=== PATIENT | male | born 1935 | race Caucasian/White ===

== ENCOUNTER 2017-04-06 15:18 | Inpatient (IN) | payer MEDICARE ==
[2017-04-06 17:50] VITALS: BMI 34.3
[2017-04-06] MEDS ORDERED: Clopidogrel Bisulfate 75 MG TAB PO SCH (18:30)
[2017-04-06] MEDS ORDERED: Ondansetron HCl/PF 4 MG/2 ML Vial IVP PRN (18:34)
[2017-04-06] MEDS: Tamsulosin HCl 0.4 MG CAP PO SCH (20:15)
[2017-04-06] MEDS: Oxybutynin 5 MG TAB PO SCH (20:15)
[2017-04-06] MEDS ORDERED: Rosuvastatin 10 MG TAB PO SCH (21:00)
[2017-04-07] MEDS: HYDROcodone/Acetaminophen 10/325 mg Tablet PO PRN (00:05)
--- NOTE | 2017-04-07 00:27 | HP ---
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 He has had a functional spacer placed and has been started on antibiotics. Sensitivities of the Enterococcus are still pending, but at this time, he is on daptomycin 1000 mg IV daily until further sensitivities return. He has been placed nonweightbearing and transferred to [facility] for continued antibiotics therapy. PAST MEDICAL HISTORY: As mentioned above is remarkable for recurrent DVT and atrial fibrillation, bu t also severe life threatening GI bleed from a gastric ulcer and therefore is not on any anticoagulat ion other than aspirin and Plavix. He also has the above-mentioned history of Enterococcus urinary t ract infection that was vancomycin resistant and most likely is the same organism that is causing his knee infection. PAST SURGICAL HISTORY: Positive for an appendectomy, tonsillectomy, the above-mentioned left knee re placement and a duodenostomy after his bleeding ulcer. Also remarkable for benign prostatic hypertro phy, lower tract obstructive symptoms. ALLERGIES: He has no known allergies. SOCIAL HISTORY: He is retired. Lives in [place] with his for many years. He is a nonsmoker. MEDICATIONS: At present include hydrocodone 10/325 as needed for pain, vitamin C 2000 mg daily, aspi rin 81 daily, Plavix 75 daily, B12 of 5000 mcg daily, daptomycin 1000 mg daily, finasteride 5 mg do y, levothyroxine 75 mcg daily, rosuvastatin 20 mg nightly, Citracal Plus D 1 tablet daily, glucosamin e/chondroitin daily, sitagliptin 50 mg daily, Zofran 4 mg as needed for nausea, Ditropan 10 mg nightl y, Protonix 40 daily, tamsulosin 0.4 mg nightly. REVIEW OF SYSTEMS: HEENT: Denies any headaches, dizziness, change in vision or hearing, hoarseness or dysphagia. Pulmonary: Denies cough, sputum production, pneumonia, asthma, tuberculosis. Cardiov ascular: Denies any chest pain, orthopnea, paroxysmal nocturnal dyspnea, or edema, but is limited in his activities secondary to his arthritis. Gastrointestinal: He has the above-mentioned history of bleeding ulcer and has no abdominal pain, no constipation, no diarrhea. Genitourinary: Denies dysu shalom, but does have nocturia, and decreased stream. Musculoskeletal: He has minimal pain in his left knee at rest, but in the knee immobilizer. Neurologic: Denies localized numbness, weakness in arms or extremities. PHYSICAL EXAMINATION: GENERAL: Patient is an elderly white male in no acute distress, oriented x3 and cooperative. VITAL SIGNS: Show him to have blood pressure of 177/75, temperature 98, pulse 62, respirations 18, O 2 sat 92%. HEENT: Pupils equal, round, and reactive to light and accommodation. Sclerae are anicteric, Conjunc tivae pale. Oral mucous membranes well hydrated. NECK: Supple. There are no nodes or masses. JVP is not elevated. LUNGS: Clear. CARDIAC: Shows irregularly irregular rhythm. No gallops or murmurs. ABDOMEN: Soft and nontender with no masses or organomegaly. SKIN/EXTREMITIES: Left knee immobilizer. Minimal tenderness. No edema, clubbing, cyanosis. No dec ubitus. NEUROLOGICAL: Intact. LABORATORY DATA: Most recently showed white count 10,900, hematocrit 36, hemoglobin 11, 19% bands. Sodium 140, potassium 4.3, chloride 111, bicarbonate 25, BUN 21, creatinine 1.25, GFR 55. ASSESSMENT: The patient is an 82-year-old white male with multiple medical problems including atrial fibrillation, deep venous thrombosis, with pulmonary embolus, obstructive sleep apnea, CPAP, type 2 diabetes, and recurrent urinary tract infection secondary to Enterococcus who presents with Enterococ cus infection of the left prosthetic. He knee is now status post removal of prosthesis and placement of spacers and initiation of treatment with Cubicin (daptomycin) 1000 mg IV daily for the next 6 wee ks. He will be monitored closely by myself and by Dr. Perales with serial renal function test. He tiesha l be given nonweightbearing orders or PT until confirmed next week, 50% nonweightbearing, be continue d on his CPAP with supplemental oxygen as needed. He will be continued on his home medications as si tagliptin for his diabetes with Accu-Cheks refused by the patient, we will only check daily labs to d etermine if need for Accu-Cheks as sitagliptin will not cause hypoglycemia. We will maintain often s ignificant anticoagulation as patient has had significant GI bleed in the past.
[2017-04-07] MEDS: Levothyroxine Sodium 75 MCG TAB PO SCH (05:42)
[2017-04-07 06:07] LABS: #Basophils 0.2 thou/uL (0.0-0.2); #Eosinphils 1.1 thou/uL (0.0-0.7); #Lymphocytes 2.3 thou/uL (1.20-3.40); #Monocytes 1.3 thou/uL (0.11-0.59); #Neutrophils 7.6 thou/uL (1.40-6.50); %Basophils 1.3 % (0.0-1.0); %Eosinophils 8.4 % (0.0-10.0); %Lymphocytes 18.4 % (21.0-51.0); %Monocytes 10.7 % (0.0-10.0); %Neutrophils 61.1 % (42.0-75.0); Hemoglobin 11.9 g/dL (14.0-18.0); Mean Corpuscular HGB CONC 32.1 g/dL (32.0-36.0); Mean Corpuscular Hemoglobin 27.7 pg (27.0-31.0); Mean Corpuscular Volume 86.3 fl (80.0-94.0); Platelet Count 165 thou/uL (130-400); RBC Distribution Width 13.3 % (11.5-14.5); Red Blood Cell (RBC) Count 4.29 mill/uL (4.70-6.10); White Blood Cell (WBC) Count 12.4 thou/uL (4.8-10.8)
[2017-04-07 06:23] LABS: Anion Gap 12 mmol/L (10-20); BUN (Urea Nitrogen) 15 mg/dL (8.4-25.7); Calc. Creatinine Clearance 111 mL/min (70-130); Calcium 9.1 mg/dL (7.8-10.44); Carbon Dioxide 27 mmol/L (23-31); Chloride 105 mmol/L (98-107); Estimated GFR-MDRD 79; Glucose 174 mg/dL (83-110); Potassium 3.4 mmol/L (3.5-5.1); Sodium 141 mmol/L (136-145)
[2017-04-07] MEDS: Alogliptin 6.25 MG TAB PO SCH (09:01)
[2017-04-07] MEDS: Ascorbic Acid 500 mg Chewable Tablet PO SCH (09:01)
[2017-04-07] MEDS: Finasteride 5 MG TAB PO SCH (09:02)
[2017-04-07] MEDS: Calcium Carbonate + Vit D 1 TAB PO SCH (09:02)
[2017-04-07] MEDS: Cyanocobalamin (Vitamin B-12) 1,000 MCG TAB PO SCH (09:02)
[2017-04-07] MEDS: Aspirin 81 mg Enteric Coated Tablet PO SCH (09:02)
[2017-04-07] MEDS: Multivitamin W/ Minerals 1 TAB PO SCH (09:03)
[2017-04-07] MEDS: Glucosam/Chondr-Msm1/D3/C/Mang [Glucosamine Chondroitin Comple PO SCH (09:03)
[2017-04-07] MEDS ORDERED: Dextrose 5% in Water 1,000 ML IV PRN (16:22)
[2017-04-07] MEDS ORDERED: Dextrose 50% Abboject 50 ML SYRINGE SLOW IVP PRN (16:22)
--- NOTE | 2017-04-07 17:14 | RAD ---
SEMIUPRIGHT PORTABLE CHEST ONE VIEW: 04/07/17 HISTORY: 82-year-old male with pulmonary fibrosis. COMPARISON: 07/05/16. FINDINGS: Cardiomegaly with some mild vascular congestion and minimal interstitial changes and left pleural eff usion, evidence for some acute vascular congestion and minimal congestive heart failure. Right PICC l ine in place. Left ICD. No overt confluent process. IMPRESSION: Minimal cardiomegaly with developing vascular congestion and minimal interstitial edema and left pleu ral effusion. These interstitial and congestive changes have progressed from a 03/27/17 study as well . POS: [facility]
--- NOTE | 2017-04-07 17:14 | PRG ---
DATE OF SERVICE: 04/06/2017 SUBJECTIVE: The patient lying in bed, visiting with family, in no distress, but states that he had d ifficulty breathing last night and became somewhat confused according to the family, although he does not remember this. He also states that he did do therapy today and after discussion with physical t herapy, has been placed on 50% weightbearing, but wishes to maintain on his knee immobilizer at all t imes. He has been using his BiPAP with supplemental oxygen and wishes to continue this. OBJECTIVE: VITAL SIGNS: Blood pressure 164/74, pulse 71, O2 sats 94% on 1.5 liters. LUNGS: Show a few diffuse posterior wheezes. CARDIAC: Shows an irregularly irregular rhythm. SKIN AND EXTREMITIES: Show no edema. Left knee is in a knee immobilizer. LABORATORY DATA: White count 12,400, hematocrit 37, hemoglobin 11. Sodium 141, potassium 3.4, chlor aj 105, bicarb 27, BUN 15, creatinine 0.92. Accu-Cheks 174-223. ASSESSMENT: 1. An 82-year-old white male, atrial fibrillation, deep vein thrombosis, pulmonary embolus, and obst ructive sleep apnea on 1.5 liters and CPAP with persistent symptoms of dyspnea at night and new onset of some wheezing and bronchospasm. 2. Enterococcal infection of the left knee, on IV daptomycin for 6 weeks. Tolerated well and doing well with therapy today, in fact, 50% weightbearing. 3. Recurrent delirium worsened last night and according to family has occurred in the past and we wi ll start olanzapine 5 mg at bedtime p.r.n. and monitor. 4. Type 2 diabetes with slightly under control on sitagliptin and we will start on Accu-Cheks and mi ld sliding scale.
[2017-04-07] MEDS: HumaLOG 300 UNITS/3 ML VIAL SC PRN (17:35)
[2017-04-07] MEDS ORDERED: OLANZapine 5 MG TAB PO PRN (21:00)
[2017-04-07] MEDS: Oxybutynin 5 MG TAB PO SCH (21:06)
[2017-04-07] MEDS: Tamsulosin HCl 0.4 MG CAP PO SCH (21:06)
[2017-04-08 05:33] LABS: #Basophils 0.2 thou/uL (0.0-0.2); #Lymphocytes 2.4 thou/uL (1.20-3.40); #Monocytes 1.4 thou/uL (0.11-0.59); #Neutrophils 7.6 thou/uL (1.40-6.50); %Basophils 1.5 % (0.0-1.0); %Eosinophils 7.6 % (0.0-10.0); %Lymphocytes 19.1 % (21.0-51.0); Hemoglobin 11.6 g/dL (14.0-18.0); Mean Corpuscular HGB CONC 34.5 g/dL (32.0-36.0); Mean Corpuscular Hemoglobin 29.4 pg (27.0-31.0); Mean Corpuscular Volume 85.1 fl (80.0-94.0); Mean Platelet Volume 10.7 fL (7.4-10.4); Platelet Count 156 thou/uL (130-400); RBC Distribution Width 12.8 % (11.5-14.5); Red Blood Cell (RBC) Count 3.94 mill/uL (4.70-6.10); White Blood Cell (WBC) Count 12.5 thou/uL (4.8-10.8)
[2017-04-08] MEDS: Levothyroxine Sodium 75 MCG TAB PO SCH (05:40)
[2017-04-08 05:45] LABS: Anion Gap 13 mmol/L (10-20); BUN (Urea Nitrogen) 16 mg/dL (8.4-25.7); Calc. Creatinine Clearance 103 mL/min (70-130); Calcium 9.1 mg/dL (7.8-10.44); Carbon Dioxide 27 mmol/L (23-31); Chloride 105 mmol/L (98-107); Estimated GFR-MDRD 73; Glucose 183 mg/dL (83-110); Potassium 3.6 mmol/L (3.5-5.1); Sodium 141 mmol/L (136-145)
[2017-04-08] MEDS: HumaLOG 300 UNITS/3 ML VIAL SC PRN ×2 (05:50→12:29)
[2017-04-08] MEDS: Ascorbic Acid 500 mg Chewable Tablet PO SCH (08:34)
[2017-04-08] MEDS: Alogliptin 6.25 MG TAB PO SCH (08:34)
[2017-04-08] MEDS: Calcium Carbonate + Vit D 1 TAB PO SCH (08:35)
[2017-04-08] MEDS: Glucosam/Chondr-Msm1/D3/C/Mang [Glucosamine Chondroitin Comple PO SCH (08:35)
[2017-04-08] MEDS: Cyanocobalamin (Vitamin B-12) 1,000 MCG TAB PO SCH (08:35)
[2017-04-08] MEDS: Multivitamin W/ Minerals 1 TAB PO SCH (08:35)
[2017-04-08] MEDS: Finasteride 5 MG TAB PO SCH (08:35)
[2017-04-08] MEDS: Aspirin 81 mg Enteric Coated Tablet PO SCH (08:35)
[2017-04-08] MEDS ORDERED: Milk Of Magnesia 30 ML UDCUP PO PRN (17:55)
[2017-04-08] MEDS: Oxybutynin 5 MG TAB PO SCH (20:23)
[2017-04-08] MEDS: Tamsulosin HCl 0.4 MG CAP PO SCH (20:24)
[2017-04-09] MEDS: Levothyroxine Sodium 75 MCG TAB PO SCH (05:18)
[2017-04-09 05:23] LABS: #Basophils 0.2 thou/uL (0.0-0.2); #Eosinphils 0.9 thou/uL (0.0-0.7); #Lymphocytes 2.4 thou/uL (1.20-3.40); #Monocytes 1.5 thou/uL (0.11-0.59); #Neutrophils 9.6 thou/uL (1.40-6.50); %Basophils 1.2 % (0.0-1.0); %Lymphocytes 16.3 % (21.0-51.0); %Monocytes 10.1 % (0.0-10.0); %Neutrophils 66.4 % (42.0-75.0); Hemoglobin 11.9 g/dL (14.0-18.0); Mean Corpuscular HGB CONC 33.4 g/dL (32.0-36.0); Mean Corpuscular Hemoglobin 28.7 pg (27.0-31.0); Mean Corpuscular Volume 86.1 fl (80.0-94.0); Mean Platelet Volume 11.1 fL (7.4-10.4); Platelet Count 166 thou/uL (130-400); RBC Distribution Width 13.2 % (11.5-14.5); Red Blood Cell (RBC) Count 4.15 mill/uL (4.70-6.10); White Blood Cell (WBC) Count 14.4 thou/uL (4.8-10.8)
[2017-04-09 05:43] LABS: ALT (SGPT) 29 U/L (8-55); AST (SGOT) 34 U/L (5-34); Albumin 2.9 g/dL (3.4-4.8); Alkaline Phosphatase 120 U/L (40-150); Anion Gap 13 mmol/L (10-20); BUN (Urea Nitrogen) 18 mg/dL (8.4-25.7); Bilirubin, Total 0.8 mg/dL (0.2-1.2); CK (CPK) 60 U/L (30-200); Calc. Creatinine Clearance 97 mL/min (70-130); Calcium 9.2 mg/dL (7.8-10.44); Carbon Dioxide 27 mmol/L (23-31); Chloride 105 mmol/L (98-107); Estimated GFR-MDRD 68; Globulin 3.4 g/dL (2.4-3.5); Glucose 188 mg/dL (83-110); Potassium 3.8 mmol/L (3.5-5.1); Protein, Total 6.3 g/dL (5.8-8.1); Sodium 141 mmol/L (136-145)
[2017-04-09] MEDS: HumaLOG 300 UNITS/3 ML VIAL SC PRN ×4 (05:57→20:13)
[2017-04-09] MEDS: Ascorbic Acid 500 mg Chewable Tablet PO SCH (08:28)
[2017-04-09] MEDS: Aspirin 81 mg Enteric Coated Tablet PO SCH (08:28)
[2017-04-09] MEDS: Calcium Carbonate + Vit D 1 TAB PO SCH (08:28)
[2017-04-09] MEDS: Alogliptin 6.25 MG TAB PO SCH (08:28)
[2017-04-09] MEDS: Glucosam/Chondr-Msm1/D3/C/Mang [Glucosamine Chondroitin Comple PO SCH (08:29)
[2017-04-09] MEDS: Multivitamin W/ Minerals 1 TAB PO SCH (08:29)
[2017-04-09] MEDS: Finasteride 5 MG TAB PO SCH (08:29)
[2017-04-09] MEDS ORDERED: Melatonin 3 MG TAB PO PRN (10:17)
[2017-04-09] MEDS: Cyanocobalamin (Vitamin B-12) 1,000 MCG TAB PO SCH (12:08)
[2017-04-09 12:20] LABS: Bilirubin Negative (Negative); Blood, Urine Negative (Negative); Clarity Clear (Clear); Glucose, Urine (Dipstick) Negative (Negative); Leukocyte Negative (Negative); Nitrite Negative (Negative); Protein, Urine (Dipstick) Negative (Neg-Trace); Specific Gravity, Urine 1.015 (1.005-1.030); Urobilinogen 0.2 mg/dL (0.2-1.0)
[2017-04-09 15:10] LABS: CRP (Inflammatory) 7.47 mg/dL (= or < 0.5)
[2017-04-09] MEDS: Oxybutynin 5 MG TAB PO SCH (20:13)
[2017-04-09] MEDS: Tamsulosin HCl 0.4 MG CAP PO SCH (20:13)
[2017-04-09 21:56] LABS: RBC/HPF 0-3 HPF (0-3); Squamous Epithelial 0-3 HPF (0-3); WBC/HPF 0-3 HPF (0-3)
[2017-04-10] MEDS ORDERED: Furosemide 40 MG/4 ML VIAL SLOW IVP SCH (03:00)
--- NOTE | 2017-04-10 04:07 | PRG ---
DATE OF SERVICE: 04/09/2017 SUBJECTIVE: The patient feels well during the day, but is confused at night. No respiratory distres s. No cough, eating well. No agitation. OBJECTIVE: LABORATORY: Shows white count of 14,400, hematocrit 35, hemoglobin 11. Sodium 141, potassium 3.8, c hloride 105, bicarbonate 27, BUN was 18, creatinine 1.05, glucose 149-210, CRPS up to 7.47 from previ ous visit 10 days ago 1.06. LUNGS: Clear, anterior do show some congestion posteriorly. Chest x-ray does show minimal pulmonary congestion. ASSESSMENT AND PLAN: 1. Persistent confusion on olanzapine and will discontinue and start on melatonin at night. 2. Possible worsening infection of left knee with increasing leukocytosis and CRP on daptomycin. We will increase broad spectrum coverage with meropenem and discussed with Dr. Perales when available. 3. Mild pulmonary congestion. Will start on furosemide one dose in the a.m., 40 mg and repeat basic metabolic profile, BNP, CRP in the a.m. as well as CBC.
--- NOTE | 2017-04-10 04:13 | PRG ---
DATE OF SERVICE: 04/08/2017 SUBJECTIVE: The patient is awake and alert, in no distress, but is becoming confused every night and has become more sedated when given olanzapine. OBJECTIVE: VITAL SIGNS: Temperature is 98, pulse 62, respirations 18, O2 sats 94% on 2 liters, blood pressure i s 174/81. LABORATORY: Sodium 141, potassium 3.6, chloride 105, bicarbonate 27, BUN 16, creatinine 0.99, glucos e 183. Accu-Cheks elevated to 218-223, calcium 9.1. LUNGS: Lungs are clear. CARDIAC EXAMINATION: Cardiac examination shows regular rhythm. EXTREMITIES: Left knee is swollen, but showing minimal erythema and is able to mobilize in the bed w ith no discomfort. ASSESSMENT: 1. Prosthetic knee infection with spacers being treated for Enterococcus infection with daptomycin w ith no evidence of significant infection in the knee. 2. New onset of confusion at night, unknown etiology with no response to olanzapine and we will disc ontinue and reorient. PLAN: 1. Obtain CBC, BMP, CRP in the a.m., evaluate for signs of increasing infection. 2. Continue daptomycin. 3. Continue knee immobilizer. 4. Continue diabetes on sliding scale, as slightly controlled. 5. Continue CPAP for obstructive sleep apnea.
[2017-04-10] MEDS: Levothyroxine Sodium 75 MCG TAB PO SCH (05:28)
[2017-04-10] MEDS: Meropenem 1 GM in Sodium Chloride 0.9% 100 ML IVPB SCH ×2 (05:28→13:02)
[2017-04-10 05:46] LABS: #Basophils 0.2 thou/uL (0.0-0.2); #Eosinphils 0.9 thou/uL (0.0-0.7); #Lymphocytes 1.7 thou/uL (1.20-3.40); #Monocytes 1.5 thou/uL (0.11-0.59); #Neutrophils 9.7 thou/uL (1.40-6.50); %Basophils 1.2 % (0.0-1.0); %Eosinophils 6.4 % (0.0-10.0); %Lymphocytes 11.9 % (21.0-51.0); %Monocytes 10.9 % (0.0-10.0); %Neutrophils 69.5 % (42.0-75.0); Hemoglobin 11.7 g/dL (14.0-18.0); Mean Corpuscular HGB CONC 31.9 g/dL (32.0-36.0); Mean Corpuscular Hemoglobin 27.5 pg (27.0-31.0); Mean Corpuscular Volume 86.3 fl (80.0-94.0); Platelet Count 163 thou/uL (130-400); RBC Distribution Width 13.4 % (11.5-14.5); Red Blood Cell (RBC) Count 4.25 mill/uL (4.70-6.10); White Blood Cell (WBC) Count 13.9 thou/uL (4.8-10.8)
[2017-04-10 06:01] LABS: Anion Gap 14 mmol/L (10-20); BUN (Urea Nitrogen) 20 mg/dL (8.4-25.7); Calc. Creatinine Clearance 93 mL/min (70-130); Calcium 9.4 mg/dL (7.8-10.44); Carbon Dioxide 28 mmol/L (23-31); Chloride 103 mmol/L (98-107); Estimated GFR-MDRD 64; Glucose 212 mg/dL (83-110); Potassium 4.2 mmol/L (3.5-5.1); Sodium 141 mmol/L (136-145)
[2017-04-10] MEDS: HumaLOG 300 UNITS/3 ML VIAL SC PRN ×3 (06:07→17:03)
[2017-04-10] MEDS: Finasteride 5 MG TAB PO SCH (08:14)
[2017-04-10] MEDS: Aspirin 81 mg Enteric Coated Tablet PO SCH (08:14)
[2017-04-10] MEDS: Alogliptin 6.25 MG TAB PO SCH (08:14)
[2017-04-10] MEDS: Calcium Carbonate + Vit D 1 TAB PO SCH (08:14)
[2017-04-10] MEDS: Ascorbic Acid 500 mg Chewable Tablet PO SCH (08:14)
[2017-04-10] MEDS: Cyanocobalamin (Vitamin B-12) 1,000 MCG TAB PO SCH (08:15)
[2017-04-10] MEDS: Glucosam/Chondr-Msm1/D3/C/Mang [Glucosamine Chondroitin Comple PO SCH (08:15)
[2017-04-10] MEDS: Multivitamin W/ Minerals 1 TAB PO SCH (08:15)
--- NOTE | 2017-04-10 10:41 | RAD ---
PORTABLE CHEST: Date: 04-10-17 History: Follow up CHF. Comparison: 04-07-17 FINDINGS: This exam is limited due to under penetrated technique. Dual-lead left subclavian cardiac pacemaking device remains in place. Right sided PICC line is also stable in position. Cardiac silhouette remains enlarged. Pulmonary vasculature while magnified by depth of inspiration and portable technique, does appear mildly increased. There is suboptimal evaluation of the left lung base. There are findings guerin ggestive of a small left pleural effusion and atelectasis. Vascular calcifications are seen in the t horacic aorta. No other interval change. IMPRESSION: Mild CHF with small left pleural effusion, not significantly changed from the prior exam. POS: [facility]
[2017-04-10] MEDS ORDERED: Sterile Water 10 ML VIAL FS SCH (15:45)
[2017-04-10] MEDS: Oxybutynin 5 MG TAB PO SCH (21:59)
[2017-04-10] MEDS: Tamsulosin HCl 0.4 MG CAP PO SCH (22:00)
[2017-04-10] MEDS: Meropenem 1 GM VIAL SLOW IVP SCH (22:00)
[2017-04-10] MEDS: Melatonin 3 MG TAB PO PRN (22:00)
[2017-04-10] MEDS: Sterile Water 10 ML VIAL FS PRN (22:01)
[2017-04-11] MEDS: Levothyroxine Sodium 75 MCG TAB PO SCH (05:34)
[2017-04-11] MEDS: Meropenem 1 GM VIAL SLOW IVP SCH ×3 (05:35→21:23)
[2017-04-11] MEDS: HumaLOG 300 UNITS/3 ML VIAL SC PRN ×3 (05:35→21:24)
[2017-04-11] MEDS: Sterile Water 10 ML VIAL FS PRN ×2 (05:35→21:24)
[2017-04-11] MEDS: Cyanocobalamin (Vitamin B-12) 1,000 MCG TAB PO SCH (08:40)
[2017-04-11] MEDS: Calcium Carbonate + Vit D 1 TAB PO SCH (08:40)
[2017-04-11] MEDS: Alogliptin 6.25 MG TAB PO SCH (08:40)
[2017-04-11] MEDS: Ascorbic Acid 500 mg Chewable Tablet PO SCH (08:40)
[2017-04-11] MEDS: Aspirin 81 mg Enteric Coated Tablet PO SCH (08:40)
[2017-04-11] MEDS: Multivitamin W/ Minerals 1 TAB PO SCH (08:41)
[2017-04-11] MEDS: Finasteride 5 MG TAB PO SCH (08:41)
[2017-04-11] MEDS: Oxybutynin 5 MG TAB PO SCH (21:22)
[2017-04-11] MEDS: Tamsulosin HCl 0.4 MG CAP PO SCH (21:23)
[2017-04-11] MEDS: Melatonin 3 MG TAB PO PRN (21:23)
--- NOTE | 2017-04-11 23:30 | PRG ---
DATE OF SERVICE: 04/11/2017 SUBJECTIVE: The patient feels well with no knee pain. States that he slept well through the night, although the nurses state that he was intermittently awake and confused. At this time, he appears to be in no distress. OBJECTIVE: VITAL SIGNS: Shows temperature 97.1, pulse 62, respirations 24, O2 sats 95% on 2 liters. LUNGS: Clear. CARDIAC EXAMINATION: Shows regular rhythm. No gallops or murmurs. LABORATORY DATA: Yesterday showed white count was decreased to 13,900, sed rate of 68, but CRP was e levated to 7.47. Cultures from wound in knee still showing Enterococcus faecium with final sensitivi ty to return in 2 days. ASSESSMENT: 1. Prosthetic knee infection with Enterococcus, on daptomycin. Stable renal function with persisten t increase in inflammatory markers with new finding of increased confusion at night. 2. Stable diabetes on sliding scale. 3. Stable obstructive sleep apnea, but unable to wear at night with oxygen. PLAN: Continue 2 liters O2 attempt to wean off. Continue melatonin at night and await results of cu ltures and continue daptomycin and discussed with Dr. Perales.
[2017-04-12] MEDS: Levothyroxine Sodium 75 MCG TAB PO SCH (04:22)
[2017-04-12] MEDS: HYDROcodone/Acetaminophen 10/325 mg Tablet PO PRN (04:22)
[2017-04-12] MEDS: HumaLOG 300 UNITS/3 ML VIAL SC PRN ×3 (05:09→20:57)
[2017-04-12] MEDS: Meropenem 1 GM VIAL SLOW IVP SCH ×3 (05:09→21:05)
[2017-04-12] MEDS: Sterile Water 10 ML VIAL FS PRN ×2 (05:10→14:49)
[2017-04-12] MEDS: Ascorbic Acid 500 mg Chewable Tablet PO SCH (08:39)
[2017-04-12] MEDS: Alogliptin 6.25 MG TAB PO SCH (08:39)
[2017-04-12] MEDS: Multivitamin W/ Minerals 1 TAB PO SCH (08:40)
[2017-04-12] MEDS: Aspirin 81 mg Enteric Coated Tablet PO SCH (08:40)
[2017-04-12] MEDS: Finasteride 5 MG TAB PO SCH (08:40)
[2017-04-12] MEDS: Cyanocobalamin (Vitamin B-12) 1,000 MCG TAB PO SCH (08:40)
[2017-04-12] MEDS: Calcium Carbonate + Vit D 1 TAB PO SCH (08:40)
[2017-04-12 09:46] LABS: Anion Gap 13 mmol/L (10-20); BUN (Urea Nitrogen) 21 mg/dL (8.4-25.7); Calc. Creatinine Clearance 98 mL/min (70-130); Calcium 10.2 mg/dL (7.8-10.44); Carbon Dioxide 29 mmol/L (23-31); Chloride 101 mmol/L (98-107); Estimated GFR-MDRD 69; Glucose 223 mg/dL (83-110); Potassium 4.5 mmol/L (3.5-5.1); Sodium 138 mmol/L (136-145)
--- NOTE | 2017-04-12 09:54 | RAD ---
CHEST ONE VIEW: History: Cough. CHF. Comparison: 04-10-17 FINDINGS: Heart size continues to be enlarged. Mild pulmonary venous congestion. A peripheral central venous ca theter tip is in the SVC in good position. Cardiac size is similar. IMPRESSION: No significant change in the radiographic appearance of the chest. Cardiomegaly with mild pulmonary v enous congestion. POS: [facility]
[2017-04-12 12:34] LABS: #Basophils 0.1 thou/uL (0.0-0.2); #Eosinphils 0.9 thou/uL (0.0-0.7); #Lymphocytes 1.6 thou/uL (1.20-3.40); #Monocytes 1.2 thou/uL (0.11-0.59); #Neutrophils 6.5 thou/uL (1.40-6.50); %Basophils 0.6 % (0.0-1.0); %Eosinophils 8.5 % (0.0-10.0); %Lymphocytes 15.3 % (21.0-51.0); %Monocytes 11.9 % (0.0-10.0); %Neutrophils 63.7 % (42.0-75.0); Mean Corpuscular HGB CONC 32.1 g/dL (32.0-36.0); Mean Corpuscular Hemoglobin 30.1 pg (27.0-31.0); Mean Corpuscular Volume 93.7 fl (80.0-94.0); Mean Platelet Volume 9.6 fL (7.4-10.4); Platelet Count 177 thou/uL (130-400); RBC Distribution Width 13.6 % (11.5-14.5); White Blood Cell (WBC) Count 10.3 thou/uL (4.8-10.8)
[2017-04-12] MEDS: Milk Of Magnesia 30 ML UDCUP PO PRN (16:15)
[2017-04-12] MEDS: Tamsulosin HCl 0.4 MG CAP PO SCH (20:57)
[2017-04-12] MEDS: Oxybutynin 5 MG TAB PO SCH (20:57)
--- NOTE | 2017-04-12 23:22 | PRG ---
DATE OF SERVICE: 04/12/2017 SUBJECTIVE: The patient feels well, lying in bed with no complaints except for occasional cough, sta ble dyspnea, stable pain in the knee, and insomnia. Denies all confusion or agitation. OBJECTIVE: Shows hematocrit 37, hemoglobin 12, white count 10,300. Sodium 138, potassium 4.5, chlor aj 101, bicarb 29, BUN 21, creatinine 1.04, glucose ranged from 155 to 211, BNP is elevated at 342. Chest x-ray showed mild pulmonary venous congestion and cardiomegaly. Vital signs show temperature 97.2, pulse 67, respirations 18, O2 saturation 90% on 2 liters, blood pressure 160/77. Cultures from the knee for enterococcus has sensitivities back tomorrow and left knee appears to be healing well w ith no erythema or warmth or drainage. ASSESSMENT: 1. Resolving enterococcal infection of the left knee prosthetic with spacer who will have sensitivit ies return tomorrow. 2. Obstructive sleep apnea, diastolic heart failure, stable with elevated BNP, no significant bronch ospasm. 3. Stable type 2 diabetes. 4. Obstructive sleep apnea with inability to wear oxygen and CPAP. PLAN: 1. Continue daptomycin and check sensitivities tomorrow and discuss with Dr. Perales. 2. Continue PT, OT. 3. Continue melatonin at night, appears to be stable. 4. Continue Accu-Cheks, controlled diabetes.
[2017-04-13] MEDS: Meropenem 1 GM VIAL SLOW IVP SCH ×3 (05:18→21:40)
[2017-04-13] MEDS: Levothyroxine Sodium 75 MCG TAB PO SCH (05:18)
[2017-04-13] MEDS: HumaLOG 300 UNITS/3 ML VIAL SC PRN ×2 (05:20→21:40)
[2017-04-13] MEDS: Alogliptin 6.25 MG TAB PO SCH (09:06)
[2017-04-13] MEDS: Calcium Carbonate + Vit D 1 TAB PO SCH (09:06)
[2017-04-13] MEDS: Ascorbic Acid 500 mg Chewable Tablet PO SCH (09:06)
[2017-04-13] MEDS: Cyanocobalamin (Vitamin B-12) 1,000 MCG TAB PO SCH (09:06)
[2017-04-13] MEDS: Aspirin 81 mg Enteric Coated Tablet PO SCH (09:06)
[2017-04-13] MEDS: Multivitamin W/ Minerals 1 TAB PO SCH (09:07)
[2017-04-13] MEDS: Finasteride 5 MG TAB PO SCH (09:07)
[2017-04-13] MEDS: Milk Of Magnesia 30 ML UDCUP PO PRN (14:31)
[2017-04-13] MEDS: Oxybutynin 5 MG TAB PO SCH (21:41)
[2017-04-13] MEDS: Tamsulosin HCl 0.4 MG CAP PO SCH (21:41)
[2017-04-14] MEDS: HumaLOG 300 UNITS/3 ML VIAL SC PRN ×3 (05:11→20:59)
[2017-04-14] MEDS: Meropenem 1 GM VIAL SLOW IVP SCH ×3 (05:11→21:00)
[2017-04-14] MEDS: Levothyroxine Sodium 75 MCG TAB PO SCH (05:12)
[2017-04-14] MEDS: Calcium Carbonate + Vit D 1 TAB PO SCH (09:06)
[2017-04-14] MEDS: Cyanocobalamin (Vitamin B-12) 1,000 MCG TAB PO SCH (09:07)
[2017-04-14] MEDS: Finasteride 5 MG TAB PO SCH (09:07)
[2017-04-14] MEDS: Ascorbic Acid 500 mg Chewable Tablet PO SCH (09:07)
[2017-04-14] MEDS: Multivitamin W/ Minerals 1 TAB PO SCH (09:07)
[2017-04-14] MEDS: Aspirin 81 mg Enteric Coated Tablet PO SCH (09:07)
[2017-04-14] MEDS: Alogliptin 6.25 MG TAB PO SCH (09:07)
[2017-04-14] MEDS: Tamsulosin HCl 0.4 MG CAP PO SCH (20:49)
[2017-04-14] MEDS: Oxybutynin 5 MG TAB PO SCH (20:49)
--- NOTE | 2017-04-14 21:37 | PRG ---
DATE OF SERVICE: 04/14/2017 DATE OF ADMISSION: 04/06/2017 HISTORY OF PRESENT ILLNESS: Mr. Schreiber is an 82-year-old white male with multiple medical problems, bu t basically had an infection of left prosthetic knee. It was documented to be Enterococcus and he josue d a functional spacer placed with antibiotics. He is on daptomycin 1000 mg IV until further sensitiv ities return. He is nonweightbearing and transferred to [facility] for continued ant ibiotics care. SUBJECTIVE: The patient is oriented to person and place, but not to time. He states he is doing wel l, has no complaints, states he is eating well and has random pain. PHYSICAL EXAMINATION: VITAL SIGNS: Reveal blood pressure elevated this morning at 181/86, pulse 60-65, respirations 18-21, O2 sat 93%-94% on 2 liters. Point of care sugars reveals the patient's fasting this morning was 160 , before lunch 204, before supper 138. GENERAL: This is a well-developed, well-nourished, obese white male lying in bed with his knee immob ilizer still in place. He has no specific complaints at this time. HEENT: Reveals normocephalic, nontraumatic cranium. Pupils are equally round, reactive. Nose and t hroat are dry, but clear. NECK: Supple. CHEST: Clear to auscultation, no rales, rhonchi, wheezes or cough is heard. HEART: Reveals a regular rate and rhythm without murmurs, gallops or rubs. ABDOMEN: Obese, soft, nontender, no organomegaly. Normal bowel sounds are noted. GENITROURINARY: Deferred. EXTREMITIES: Reveal left leg in a knee immobilizer which he moves if needed. ASSESSMENT: 1. Enterococcal infection in the left prosthetic knee with spacer. 2. Diabetes type 2. 3. Obstructive sleep apnea. 4. Diastolic heart failure. 5. Del Valle's esophagitis. 6. History of atrial fibrillation. 7. History of recurrent deep venous thrombosis. 8. History of gastric ulcers with life threatening gastrointestinal bleed. PLAN: 1. Continue present medications. 2. Dr. Arboleda talked with Dr. Perales about keeping him on the daptomycin until those cultures retur n from I believe [facility]. 3. Decubitus precautions. 4. Stress ulcer prophylaxis. 5. DVT precautions. 6. Continue present antibiotics.
[2017-04-15] MEDS: Levothyroxine Sodium 75 MCG TAB PO SCH (05:50)
[2017-04-15] MEDS: Meropenem 1 GM VIAL SLOW IVP SCH ×3 (05:50→21:54)
[2017-04-15] MEDS: Ascorbic Acid 500 mg Chewable Tablet PO SCH (10:18)
[2017-04-15] MEDS: Alogliptin 6.25 MG TAB PO SCH (10:18)
[2017-04-15] MEDS: Calcium Carbonate + Vit D 1 TAB PO SCH (10:18)
[2017-04-15] MEDS: Finasteride 5 MG TAB PO SCH (10:19)
[2017-04-15] MEDS: Multivitamin W/ Minerals 1 TAB PO SCH (10:19)
[2017-04-15] MEDS: Cyanocobalamin (Vitamin B-12) 1,000 MCG TAB PO SCH (10:19)
[2017-04-15] MEDS: Aspirin 81 mg Enteric Coated Tablet PO SCH (10:19)
[2017-04-15] MEDS: HumaLOG 300 UNITS/3 ML VIAL SC PRN ×3 (12:31→21:55)
[2017-04-15] MEDS ORDERED: Ascorbic Acid 500 mg Chewable Tablet PO SCH (18:15)
--- NOTE | 2017-04-15 19:56 | PRG ---
DATE OF SERVICE: 04/15/2017 HISTORY OF PRESENT ILLNESS: Patient is a very pleasant 82-year-old white male with multiple medical problems. Unfortunately, he had an infected left prosthetic knee. It was documented as Enterococcus and he had functional spacer placed with antibiotics. He was also placed on daptomycin 1000 mg IV u ntil further sensitivities returned from [facility]. He is nonweightbearing and was transferred to [facility] for continued antibiotic care. SUBJECTIVE: The patient states he is doing well. He is oriented to person, place, but not the time. He has no complaints today. He states he does not like to eat much and he is enough. LABORATORY: No labs were done today. Point of care sugars reveal fasting this morning 140, before lunch 170, before supper 176. PHYSICAL EXAMINATION: GENERAL: This is a well-developed, well-nourished, obese white male in no apparent distress at this time. OBJECTIVE: Vital signs this morning reveal blood pressure 134/71, pulse 59-62, respirations 18-22, O 2 sat 90-98% on 2 liters, T-max 97.8. HEENT: Reveals normocephalic, nontraumatic cranium. Pupils are equally round and reactive. Nose an d throat are clear and dry. NECK: Supple, without masses, nodes or bruits. LUNGS: Chest is clear to auscultation. No rales, no rhonchi, no wheezes are heard. No cough is not ed. HEART: Reveals a regular rate and rhythm without murmurs, gallops or rubs. ABDOMEN: Obese, soft, nontender, without organomegaly. Normal bowel sounds are noted in all 4 quadr ants. : Deferred. EXTREMITIES: Reveal left leg, knee immobilizer which is in place. No significant swelling or rednes s is noted. ASSESSMENT: 1. Enterococcal infection of the left prosthetic knee with spacer. 2. Diabetes type 2. 3. Obstructive sleep apnea. 4. Diastolic heart failure. 5. Del Valle's esophagitis. 6. History of atrial fibrillation. 7. History of recurrent deep venous thromboses. 8. History of gastric ulcers with life threatening gastrointestinal bleed. 9. Generalized weakness. 10. Occasional confusion. PLAN: 1. Continue present medications. 2. We will keep the patient on daptomycin until Dr. Perales gets his cultures back from [facility]. 3. Decubitus precautions. 4. Stress ulcer prophylaxis. 5. DVT precautions. 6. Continue present antibiotics. 7. Continue present medications. 8. Supportive care.
[2017-04-15] MEDS: Tamsulosin HCl 0.4 MG CAP PO SCH (21:55)
[2017-04-15] MEDS: Oxybutynin 5 MG TAB PO SCH (21:55)
[2017-04-16] MEDS: Meropenem 1 GM VIAL SLOW IVP SCH ×3 (06:03→21:04)
[2017-04-16] MEDS: Levothyroxine Sodium 75 MCG TAB PO SCH (06:03)
[2017-04-16] MEDS: Alogliptin 6.25 MG TAB PO SCH (08:12)
[2017-04-16] MEDS: Ascorbic Acid 500 mg Chewable Tablet PO SCH (08:13)
[2017-04-16] MEDS: Calcium Carbonate + Vit D 1 TAB PO SCH (08:14)
[2017-04-16] MEDS: Aspirin 81 mg Enteric Coated Tablet PO SCH (08:14)
[2017-04-16] MEDS: Cyanocobalamin (Vitamin B-12) 1,000 MCG TAB PO SCH (08:14)
[2017-04-16] MEDS: Multivitamin W/ Minerals 1 TAB PO SCH (08:15)
[2017-04-16] MEDS: Finasteride 5 MG TAB PO SCH (08:15)
--- NOTE | 2017-04-16 17:00 | PRG ---
DATE OF SERVICE: 04/16/2017 DATE OF ADMISSION: 04/06/2017 HISTORY OF PRESENT ILLNESS: Mr. Schreiber is a very pleasant 82-year-old white male that had infected lef t prosthetic knee. Infection was documented as Enterococcus and the patient had a functional spacer placed with antibiotics. He was placed on daptomycin 1000 mg IV until further sensitivities returned from [facility]. He is nonweightbearing and was transferred to [facility] for cont inued antibiotic care and physical therapy and occupational therapy. The patient states he did well on therapy this morning and they worked him pretty hard. SUBJECTIVE: The patient has no complaints today. His is in room, and I have answered all of he r questions. OBJECTIVE: VITAL SIGNS: Reveal blood pressure this morning 149/74, pulse 62-63, respirations 16-20, O2 sat 93% on 2 liters, T-max is 97.6. GENERAL: This is a well-developed, well-nourished, very pleasant, obese white male, in no apparent d istress at this time. HEENT: Reveals normocephalic, nontraumatic cranium. Pupils are equal, round, and reactive. Extraoc ular movements intact. Nose and throat are slightly dry. NECK: Supple, without masses, nodes, or bruits. LUNGS: Chest clear to auscultation. No rales, rhonchi, or wheezes are heard. The patient does have a raspy cough today. HEART: Reveals a regular rate and rhythm without murmurs, gallops, or rubs. ABDOMEN: Obese, soft, nontender, without organomegaly, normal bowel sounds are noted. No rebound or guarding is noted. : Exam is deferred. EXTREMITIES: Reveal left knee still in knee immobilizer with no swelling or redness or significant p ain. IMPRESSION: 1. Enterococcus infection, left prosthetic knee with spacer and antibiotics. 2. Diabetes, type 2. 3. Obstructive sleep apnea. 4. Diastolic heart failure. 5. Del Valle's esophagitis. 6. History of atrial fibrillation. 7. Recurrent deep venous thrombosis. 8. History of gastrointestinal ulcer with life-threatening gastrointestinal bleed in the distant pas t. 9. Generalized weakness. 10. Occasional confusion. PLAN: 1. Continue daptomycin until discussed with Dr. Perales. 2. Continue present medications. 3. Decubitus precautions. 4. Stress ulcer prophylaxis. 5. DVT precautions. 6. Continue present antibiotics. 7. Continue present medication. 8. Supportive care.
[2017-04-16] MEDS: Oxybutynin 5 MG TAB PO SCH (21:04)
[2017-04-16] MEDS: Tamsulosin HCl 0.4 MG CAP PO SCH (21:05)
[2017-04-17] MEDS: Levothyroxine Sodium 75 MCG TAB PO SCH (05:40)
[2017-04-17] MEDS: Meropenem 1 GM VIAL SLOW IVP SCH ×3 (05:40→20:59)
[2017-04-17] MEDS: Ascorbic Acid 500 mg Chewable Tablet PO SCH (08:13)
[2017-04-17] MEDS: Alogliptin 6.25 MG TAB PO SCH (08:13)
[2017-04-17] MEDS: Cyanocobalamin (Vitamin B-12) 1,000 MCG TAB PO SCH (08:14)
[2017-04-17] MEDS: Aspirin 81 mg Enteric Coated Tablet PO SCH (08:14)
[2017-04-17] MEDS: Calcium Carbonate + Vit D 1 TAB PO SCH (08:14)
[2017-04-17] MEDS: Finasteride 5 MG TAB PO SCH (08:15)
[2017-04-17] MEDS: Multivitamin W/ Minerals 1 TAB PO SCH (08:15)
[2017-04-17] MEDS: Oxybutynin 5 MG TAB PO SCH (20:33)
[2017-04-17] MEDS: Tamsulosin HCl 0.4 MG CAP PO SCH (20:33)
[2017-04-17] MEDS: HumaLOG 300 UNITS/3 ML VIAL SC PRN (20:33)
[2017-04-18] MEDS: Levothyroxine Sodium 75 MCG TAB PO SCH (05:26)
[2017-04-18] MEDS: Meropenem 1 GM VIAL SLOW IVP SCH ×3 (05:27→22:12)
[2017-04-18] MEDS: Calcium Carbonate + Vit D 1 TAB PO SCH (09:02)
[2017-04-18] MEDS: Cyanocobalamin (Vitamin B-12) 1,000 MCG TAB PO SCH (09:02)
[2017-04-18] MEDS: Ascorbic Acid 500 mg Chewable Tablet PO SCH (09:02)
[2017-04-18] MEDS: Alogliptin 6.25 MG TAB PO SCH (09:02)
[2017-04-18] MEDS: Aspirin 81 mg Enteric Coated Tablet PO SCH (09:03)
[2017-04-18] MEDS: Multivitamin W/ Minerals 1 TAB PO SCH (09:03)
[2017-04-18] MEDS: Finasteride 5 MG TAB PO SCH (09:03)
[2017-04-18] MEDS: HumaLOG 300 UNITS/3 ML VIAL SC PRN (11:23)
--- NOTE | 2017-04-18 15:54 | PRG ---
DATE OF SERVICE: 04/17/2017 SUBJECTIVE: The patient feels well. Still not sleeping at night, sleeping during the day, but not a gitated. Cooperated with therapy. He is having no pain in his knee. OBJECTIVE: VITAL SIGNS: Shows blood pressure is 134/72, temperature 95.9, pulse 63, respirations 20, O2 saturat ion is 95%. LUNGS: Clear. CARDIAC: Examination shows regular rhythm. No gallops or murmurs. ABDOMEN: Soft, nontender with no masses or organomegaly. EXTREMITIES: Left knee shows no erythema, warmth or tenderness. Mild swelling. Display no clubbing or cyanosis. Objective shows wound is growing vancomycin-resistant Enterococcus and after discussion with Dr. Melany alcaraz agreed to continue on daptomycin and this appears to be the best course and is very resistant organ ism and continue for 42 days. ASSESSMENT: 1. Vancomycin-resistant enterococcal infection of left knee pain, on daptomycin for 42 days. 2. Stable type 2 diabetes. 3. Obstructive sleep apnea. Stable, fair compliance on CPAP. 4. Diastolic heart failure, well compensated. 5. Del Valle esophagus, asymptomatic. PLAN: 1. Continue daptomycin 10 mg daily. 2. Continue Accu-Cheks and monitor control of diabetes mellitus. 3. Obstructive sleep apnea controlled with CPAP. 4. Continue treatment with diastolic pressure.
[2017-04-18] MEDS: HYDROcodone/Acetaminophen 10/325 mg Tablet PO PRN ×2 (18:53→23:05)
[2017-04-18] MEDS: Tamsulosin HCl 0.4 MG CAP PO SCH (20:10)
[2017-04-18] MEDS: Oxybutynin 5 MG TAB PO SCH (20:10)
[2017-04-18] MEDS: Sterile Water 10 ML VIAL FS PRN (22:12)
[2017-04-19] MEDS: Sterile Water 10 ML VIAL FS PRN ×2 (05:32→21:10)
[2017-04-19] MEDS: Levothyroxine Sodium 75 MCG TAB PO SCH (05:32)
[2017-04-19] MEDS: Meropenem 1 GM VIAL SLOW IVP SCH ×3 (05:32→21:09)
[2017-04-19] MEDS: Ascorbic Acid 500 mg Chewable Tablet PO SCH (09:49)
[2017-04-19] MEDS: Multivitamin W/ Minerals 1 TAB PO SCH (09:50)
[2017-04-19] MEDS: Finasteride 5 MG TAB PO SCH (09:50)
[2017-04-19] MEDS: Alogliptin 6.25 MG TAB PO SCH (09:50)
[2017-04-19] MEDS: Cyanocobalamin (Vitamin B-12) 1,000 MCG TAB PO SCH (09:50)
[2017-04-19] MEDS: Calcium Carbonate + Vit D 1 TAB PO SCH (09:50)
[2017-04-19] MEDS: Aspirin 81 mg Enteric Coated Tablet PO SCH (09:51)
[2017-04-19] MEDS: HumaLOG 300 UNITS/3 ML VIAL SC PRN ×2 (12:12→17:07)
[2017-04-19] MEDS: Oxybutynin 5 MG TAB PO SCH (20:46)
[2017-04-19] MEDS: Tamsulosin HCl 0.4 MG CAP PO SCH (20:47)
[2017-04-19] MEDS: Melatonin 3 MG TAB PO PRN (20:47)
[2017-04-19] MEDS: Milk Of Magnesia 30 ML UDCUP PO PRN (20:48)
[2017-04-20] MEDS: Meropenem 1 GM VIAL SLOW IVP SCH ×3 (05:31→21:30)
[2017-04-20] MEDS: Sterile Water 10 ML VIAL FS PRN ×2 (05:32→21:31)
[2017-04-20] MEDS: Levothyroxine Sodium 75 MCG TAB PO SCH (05:32)
[2017-04-20] MEDS: Cyanocobalamin (Vitamin B-12) 1,000 MCG TAB PO SCH (08:59)
[2017-04-20] MEDS: Calcium Carbonate + Vit D 1 TAB PO SCH (08:59)
[2017-04-20] MEDS: Aspirin 81 mg Enteric Coated Tablet PO SCH (08:59)
[2017-04-20] MEDS: Clopidogrel Bisulfate 75 MG TAB PO SCH (08:59)
[2017-04-20] MEDS: Multivitamin W/ Minerals 1 TAB PO SCH (08:59)
[2017-04-20] MEDS: Alogliptin 6.25 MG TAB PO SCH (08:59)
[2017-04-20] MEDS: Finasteride 5 MG TAB PO SCH (09:00)
[2017-04-20] MEDS: Ascorbic Acid 500 mg Chewable Tablet PO SCH (10:12)
--- NOTE | 2017-04-20 16:49 | PRG ---
DATE OF SERVICE: 04/20/2017 SUBJECTIVE: The patient is lying in bed, resting well with no dyspnea, chest pain, nausea or vomitin g. He has been sleeping somewhat better according to his . He has had no pain in his knee and h as been cooperating with therapy. He has appointment with orthopedic surgeon, Dr. Dontae Mckeon in 3 days to remove sutures. OBJECTIVE: VITAL SIGNS: Shows blood pressure is 114/61, pulse 72, O2 sat 94%, temperature 96.5. LUNGS: Clear, decreased breath sounds in bases. CARDIAC: Shows an irregular rate and rhythm. ABDOMEN: Soft and nontender. SKIN/EXTREMITIES: Left knee shows healing anterior incision with no erythema, warmth, drainage, or s welling. ASSESSMENT: 1. Resolving left prosthetic knee infection with VRE on Cubicin for a full 14 days. 2. Mild hospital delirium, stable. 3. Diastolic heart failure, well compensated. 4. Obstructive sleep apnea, stable, plan daptomycin for full 42 days of therapy. 5. Continue Accu-Cheks and monitor controlled diabetes mellitus. 6. Continue stress and CPAP for obstructive sleep apnea. 7. Obtain CBC, base met profile, CRP and sed rate in the a.m.
[2017-04-20] MEDS: Oxybutynin 5 MG TAB PO SCH (21:29)
[2017-04-20] MEDS: HYDROcodone/Acetaminophen 10/325 mg Tablet PO PRN (21:30)
[2017-04-20] MEDS: Tamsulosin HCl 0.4 MG CAP PO SCH (21:30)
[2017-04-21] MEDS: Levothyroxine Sodium 75 MCG TAB PO SCH (05:06)
[2017-04-21] MEDS: Meropenem 1 GM VIAL SLOW IVP SCH ×3 (05:06→21:10)
[2017-04-21] MEDS: Milk Of Magnesia 30 ML UDCUP PO PRN ×2 (05:07→12:32)
[2017-04-21] MEDS: Sterile Water 10 ML VIAL FS PRN (05:07)
[2017-04-21 05:45] LABS: #Basophils 0.2 thou/uL (0.0-0.2); #Eosinphils 1.1 thou/uL (0.0-0.7); #Lymphocytes 2.5 thou/uL (1.20-3.40); #Monocytes 1.1 thou/uL (0.11-0.59); #Neutrophils 6.7 thou/uL (1.40-6.50); %Basophils 1.3 % (0.0-1.0); %Eosinophils 9.7 % (0.0-10.0); %Lymphocytes 21.3 % (21.0-51.0); %Monocytes 9.3 % (0.0-10.0); %Neutrophils 58.4 % (42.0-75.0); Mean Corpuscular HGB CONC 30.8 g/dL (32.0-36.0); Mean Corpuscular Volume 87.7 fl (80.0-94.0); Mean Platelet Volume 11.7 fL (7.4-10.4); Platelet Count 164 thou/uL (130-400); RBC Distribution Width 13.4 % (11.5-14.5); Red Blood Cell (RBC) Count 4.43 mill/uL (4.70-6.10); White Blood Cell (WBC) Count 11.5 thou/uL (4.8-10.8)
[2017-04-21 06:05] LABS: ALT (SGPT) 28 U/L (8-55); AST (SGOT) 30 U/L (5-34); Albumin 2.9 g/dL (3.4-4.8); Alkaline Phosphatase 125 U/L (40-150); Anion Gap 11 mmol/L (10-20); BUN (Urea Nitrogen) 23 mg/dL (8.4-25.7); Bilirubin, Total 0.7 mg/dL (0.2-1.2); Calc. Creatinine Clearance 123 mL/min (70-130); Calcium 9.3 mg/dL (7.8-10.44); Carbon Dioxide 27 mmol/L (23-31); Chloride 104 mmol/L (98-107); Estimated GFR-MDRD 89; Globulin 3.8 g/dL (2.4-3.5); Glucose 135 mg/dL (83-110); Potassium 4.2 mmol/L (3.5-5.1); Protein, Total 6.7 g/dL (5.8-8.1); Sodium 138 mmol/L (136-145)
[2017-04-21] MEDS: Alogliptin 6.25 MG TAB PO SCH (08:42)
[2017-04-21] MEDS: Ascorbic Acid 500 mg Chewable Tablet PO SCH (08:42)
[2017-04-21] MEDS: Multivitamin W/ Minerals 1 TAB PO SCH (08:43)
[2017-04-21] MEDS: Cyanocobalamin (Vitamin B-12) 1,000 MCG TAB PO SCH (08:43)
[2017-04-21] MEDS: Clopidogrel Bisulfate 75 MG TAB PO SCH (08:43)
[2017-04-21] MEDS: Aspirin 81 mg Enteric Coated Tablet PO SCH (08:43)
[2017-04-21] MEDS: Finasteride 5 MG TAB PO SCH (08:43)
[2017-04-21] MEDS: Calcium Carbonate + Vit D 1 TAB PO SCH (08:43)
[2017-04-21] MEDS: HumaLOG 300 UNITS/3 ML VIAL SC PRN (12:17)
[2017-04-21] MEDS ORDERED: Fleet Enema 133 ML BOT PR PRN (15:20)
[2017-04-21] MEDS ORDERED: Bisacodyl 10 MG SUPP PR PRN (15:20)
[2017-04-21 15:31] LABS: CRP (Inflammatory) 2.93 mg/dL (= or < 0.5)
--- NOTE | 2017-04-21 16:26 | PRG ---
DATE OF SERVICE: 04/21/2017 SUBJECTIVE: Mr. Schreiber is doing well except for constipation. He apparently has not had a bowel movem ent since the first. Denies any vomiting. Denies any other concerns. His is in the room. OBJECTIVE: VITAL SIGNS: He is afebrile, heart rate 61, respirations 22, oxygen saturation 91% on 2 liters, bloo d pressure 157/74. CARDIOVASCULAR SYSTEM: S1, S2 plus. RESPIRATORY SYSTEM: Normal vesicular breath sounds. ABDOMEN: Soft, obese, nontender, bowel sounds heard in all quadrants. EXTREMITIES: Without cyanosis or clubbing. LABORATORY DATA: White count is 11.5, hemoglobin and hematocrit is 12 and 38.9, sed rate is down to 44. Chemistry shows sodium of 138, potassium 4.2, BUN and creatinine 22 and 0.83. Blood sugars are 186, 145, 209. CRP is pending. IMPRESSION: 1. Left prosthetic knee infection with VRE on Cubicin. 2. Diastolic congestive heart failure, chronic, well compensated. 3. Obstructive sleep apnea. 4. Diabetes mellitus type 2. 5. Constipation. PLAN: 1. Dulcolax suppository b.i.d. p.r.n. 2. Fleet's enema p.r.n. 3. Colace 100 mg b.i.d. 4. A 1800 calorie heart healthy diet. 5. Bowel regimen. 6. DVT and stress ulcer prophylaxis. 7. Decubitus precautions. 8. Continue antibiotics. 9. Discussed with patient and spouse in detail and all questions answered.
[2017-04-21] MEDS: Tamsulosin HCl 0.4 MG CAP PO SCH (21:09)
[2017-04-21] MEDS: Oxybutynin 5 MG TAB PO SCH (21:09)
[2017-04-21] MEDS: Docusate 100 MG CAP PO SCH (21:10)
[2017-04-22] MEDS: Meropenem 1 GM VIAL SLOW IVP SCH ×3 (05:38→21:05)
[2017-04-22] MEDS: Levothyroxine Sodium 75 MCG TAB PO SCH (05:39)
[2017-04-22] MEDS: Alogliptin 6.25 MG TAB PO SCH (09:18)
[2017-04-22] MEDS: Calcium Carbonate + Vit D 1 TAB PO SCH (09:19)
[2017-04-22] MEDS: Cyanocobalamin (Vitamin B-12) 1,000 MCG TAB PO SCH (09:19)
[2017-04-22] MEDS: Ascorbic Acid 500 mg Chewable Tablet PO SCH (09:19)
[2017-04-22] MEDS: Multivitamin W/ Minerals 1 TAB PO SCH (09:20)
[2017-04-22] MEDS: Docusate 100 MG CAP PO SCH ×2 (09:20→21:04)
[2017-04-22] MEDS: Finasteride 5 MG TAB PO SCH (09:20)
[2017-04-22] MEDS: Clopidogrel Bisulfate 75 MG TAB PO SCH (09:21)
[2017-04-22] MEDS: Aspirin 81 mg Enteric Coated Tablet PO SCH (09:28)
--- NOTE | 2017-04-22 11:31 | PRG ---
DATE OF SERVICE: 04/22/2017 SUBJECTIVE: Mr. Schreiber is feeling much better. He apparently had a significant impaction when nursing tried to give him an enema. He was disimpacted. He denies any nausea or vomiting. He is toleratin g his p.o. intake. No other complaints. No family at bedside. OBJECTIVE: VITAL SIGNS: He is afebrile, heart rate 60, respirations 18, oxygen saturation 95% on 2 liters, and blood pressure is 127/76. CARDIOVASCULAR SYSTEM: S1, S2 plus. RESPIRATORY SYSTEM: Normal vesicular breath sounds. ABDOMEN: Soft, obese, nontender, bowel sounds heard in all quadrants. EXTREMITIES: Without cyanosis or clubbing. CENTRAL NERVOUS SYSTEM: Generalized weakness. IMPRESSION: 1. 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 2. Resolved constipation likely due to fecal impaction. 3. Chronic diastolic congestive heart failure, well compensated. 4. Obstructive sleep apnea. 5. Diabetes mellitus type 2. 6. Morbid obesity. PLAN: 1. Continue Colace 100 mg b.i.d. 2. 1800 calorie heart healthy diet. 3. Accu-Cheks with sliding scale coverage. 4. Deep venous thrombosis and stress ulcer prophylaxis. 5. Decubitus precautions. 6. Antibiotics. 7. Routine laboratory values. 8. Dr. Jairo Arboleda will be back tonight.
[2017-04-22] MEDS: HumaLOG 300 UNITS/3 ML VIAL SC PRN (12:33)
[2017-04-22] MEDS: Tamsulosin HCl 0.4 MG CAP PO SCH (21:04)
[2017-04-22] MEDS: Oxybutynin 5 MG TAB PO SCH (21:04)
[2017-04-23] MEDS: Levothyroxine Sodium 75 MCG TAB PO SCH (05:17)
[2017-04-23] MEDS: Meropenem 1 GM VIAL SLOW IVP SCH ×3 (05:17→21:10)
[2017-04-23] MEDS: Alogliptin 6.25 MG TAB PO SCH (08:45)
[2017-04-23] MEDS: Calcium Carbonate + Vit D 1 TAB PO SCH (08:45)
[2017-04-23] MEDS: Clopidogrel Bisulfate 75 MG TAB PO SCH (08:45)
[2017-04-23] MEDS: Cyanocobalamin (Vitamin B-12) 1,000 MCG TAB PO SCH (08:45)
[2017-04-23] MEDS: Ascorbic Acid 500 mg Chewable Tablet PO SCH (08:45)
[2017-04-23] MEDS: Finasteride 5 MG TAB PO SCH (08:46)
[2017-04-23] MEDS: Aspirin 81 mg Enteric Coated Tablet PO SCH (08:46)
[2017-04-23] MEDS: Multivitamin W/ Minerals 1 TAB PO SCH (08:46)
[2017-04-23] MEDS: Docusate 100 MG CAP PO SCH ×2 (08:46→21:08)
--- NOTE | 2017-04-23 10:25 | PRG ---
DATE OF SERVICE: 04/23/2017 SUBJECTIVE: The patient feels well. No complaints, just weakness and dyspnea on exertion, no leg pa in. He is being transferred to his orthopedic surgeon, Dr. Mckeon, for evaluation of removals of sut ures and for possible increase in weightbearing status. OBJECTIVE: VITAL SIGNS: Blood pressure 122/62, temperature 96, pulse 66, respirations 20, O2 sats 95%. LUNGS: Lungs are clear. CARDIAC: Cardiac examination shows irregular regular rhythm. ABDOMEN: Obese and nontender. LABORATORY: White count 11,500, hematocrit 38, hemoglobin 12. Sed rate is 44. Accu-Cheks ranged fr om 130 to 187. CRP is 2.93, greatly improved from previous 7.47. Left knee shows anterior incision healing well with no erythema, warmth or drainage. Lungs show decr eased breath sounds. Cardiac examination shows an irregular regular rhythm. ASSESSMENT: 1. 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 2. Morbid obesity. 3. Obstructive sleep apnea, stable. 4. Hospital delirium, stable. 5. Type 2 diabetes, controlled to goal. PLAN: Follow up with Dr. Mckeon today, continue IV daptomycin as sed rate and CRP are continuing to improve. Continue Accu-Cheks with sliding scale coverage.
[2017-04-23] MEDS: Milk Of Magnesia 30 ML UDCUP PO PRN (16:48)
[2017-04-23] MEDS: Oxybutynin 5 MG TAB PO SCH (21:08)
[2017-04-23] MEDS: HYDROcodone/Acetaminophen 10/325 mg Tablet PO PRN (21:09)
[2017-04-23] MEDS: Tamsulosin HCl 0.4 MG CAP PO SCH (21:09)
[2017-04-23] MEDS: Sterile Water 10 ML VIAL FS PRN (21:11)
[2017-04-24] MEDS: Levothyroxine Sodium 75 MCG TAB PO SCH (05:35)
[2017-04-24] MEDS: Sterile Water 10 ML VIAL FS PRN (05:36)
[2017-04-24] MEDS: Meropenem 1 GM VIAL SLOW IVP SCH (05:36)
--- NOTE | 2017-04-24 07:53 | PRG ---
DATE OF SERVICE: 04/24/2017 SUBJECTIVE: The patient feels well with no complaints of pain in his left knee. No shortness of dylan ath. He states he slept well last night. Decrease confusion. No chest pain, no cough, no fever or chills. OBJECTIVE: Orthopedic consultation follow up with Dr. Mckeon yesterday stated the patient has been r emoved from knee immobilizer and started on weightbearing as tolerated and stable and routine total k nee precautions. EXTREMITIES: Left knee appears to be healing well with no evidence of a chronic infection with no er ythema, warmth or tenderness. LUNGS: Clear with decreased breath sounds diffusely. CARDIAC: Cardiac examination shows an irregularly irregular rhythm. ABDOMEN: Obese and nontender. ASSESSMENT: 1. Resolving infection of left prosthetic knee on IV daptomycin and meropenem. We will discontinue meropenem and continue daptomycin for a full 6-week course. 2. Morbid obesity. 3. Obstructive sleep apnea, stable. 4. Hospital delirium, possibly slightly improved. 5. Type 2 diabetes. PLAN: 1. Change physical therapy to total knee precautions, weightbearing as tolerated and discontinue kne e immobilizer. 2. Discontinue meropenem. 3. Discontinue Delgado and do bladder scans to evaluate for retention as patient is moving more freque ntly.
[2017-04-24] MEDS: Multivitamin W/ Minerals 1 TAB PO SCH (08:35)
[2017-04-24] MEDS: Ascorbic Acid 500 mg Chewable Tablet PO SCH (08:36)
[2017-04-24] MEDS: Finasteride 5 MG TAB PO SCH (08:36)
[2017-04-24] MEDS: Cyanocobalamin (Vitamin B-12) 1,000 MCG TAB PO SCH (08:36)
[2017-04-24] MEDS: Docusate 100 MG CAP PO SCH ×2 (08:36→20:52)
[2017-04-24] MEDS: Clopidogrel Bisulfate 75 MG TAB PO SCH (08:36)
[2017-04-24] MEDS: Alogliptin 6.25 MG TAB PO SCH (08:36)
[2017-04-24] MEDS: Aspirin 81 mg Enteric Coated Tablet PO SCH (08:36)
[2017-04-24] MEDS: Calcium Carbonate + Vit D 1 TAB PO SCH (08:36)
[2017-04-24] MEDS: HumaLOG 300 UNITS/3 ML VIAL SC PRN (11:48)
[2017-04-24] MEDS: Oxybutynin 5 MG TAB PO SCH (20:52)
[2017-04-24] MEDS: Tamsulosin HCl 0.4 MG CAP PO SCH (20:52)
[2017-04-25] MEDS: Levothyroxine Sodium 75 MCG TAB PO SCH (04:48)
[2017-04-25] MEDS: Ascorbic Acid 500 mg Chewable Tablet PO SCH (09:12)
[2017-04-25] MEDS: Alogliptin 6.25 MG TAB PO SCH (09:12)
[2017-04-25] MEDS: Aspirin 81 mg Enteric Coated Tablet PO SCH (09:13)
[2017-04-25] MEDS: Cyanocobalamin (Vitamin B-12) 1,000 MCG TAB PO SCH (09:13)
[2017-04-25] MEDS: Clopidogrel Bisulfate 75 MG TAB PO SCH (09:13)
[2017-04-25] MEDS: Calcium Carbonate + Vit D 1 TAB PO SCH (09:13)
[2017-04-25] MEDS: Multivitamin W/ Minerals 1 TAB PO SCH (09:14)
[2017-04-25] MEDS: Docusate 100 MG CAP PO SCH ×2 (09:14→21:02)
[2017-04-25] MEDS: Finasteride 5 MG TAB PO SCH (09:14)
[2017-04-25] MEDS: Dutasteride 0.5 MG CAP PO SCH (09:16)
--- NOTE | 2017-04-25 10:23 | PRG ---
DATE OF SERVICE: 04/25/2017 SUBJECTIVE: The patient is sleeping and resting well with decreased agitation, cooperating with ther apy, and is having no pain in the left knee. OBJECTIVE: VITAL SIGNS: Shows temperature is 98.4, pulse 72, respirations 20, O2 sats is 97% on 2 liters, blood pressure 172/68. LUNGS: Clear with decreased breath sounds in the bases. CARDIAC EXAMINATION: Shows an irregular rhythm. ABDOMEN: Obese, nontender. SKIN AND EXTREMITIES: Show left knee healing well. No erythema or warmth or tenderness. ASSESSMENT: 1. Resolving vancomycin-resistant enterococci infection of left total knee with recent followup with Orthopedics, and has been placed on routine total knee protocol, partial weightbearing as tolerated with no immobilizer. 2. Chronic atrial fibrillation with rate control, on anticoagulation. 3. Obstructive sleep apnea, noncompliance to CPAP, but on chronic oxygen. 4. Hospital delirium, improved. 5. Type 2 diabetes, improved. 6. Morbid obesity. 7. Urinary retention with inability to tolerate discontinuation slowly with greater than 500 mL rete ntion and has been replaced. PLAN: 1. Continue PT with a total knee protocol. 2. Continue Cubicin and repeat inflammatory markers. 3. Continue Delgado and we will start on Avodart and in addition to tamsulosin to hopefully decrease u rinary obstruction.
[2017-04-25] MEDS: Oxybutynin 5 MG TAB PO SCH (21:02)
[2017-04-25] MEDS: Milk Of Magnesia 30 ML UDCUP PO PRN (21:02)
[2017-04-25] MEDS: Tamsulosin HCl 0.4 MG CAP PO SCH (21:02)
[2017-04-26] MEDS: Levothyroxine Sodium 75 MCG TAB PO SCH (05:21)
[2017-04-26 05:30] LABS: #Basophils 0.1 thou/uL (0.0-0.2); #Lymphocytes 2.7 thou/uL (1.20-3.40); #Monocytes 1.2 thou/uL (0.11-0.59); %Basophils 1.2 % (0.0-1.0); %Eosinophils 8.4 % (0.0-10.0); %Lymphocytes 22.7 % (21.0-51.0); %Monocytes 10.2 % (0.0-10.0); %Neutrophils 57.6 % (42.0-75.0); Hemoglobin 12.4 g/dL (14.0-18.0); Large Platelets SLIGHT; MDiff Complete? YES; Mean Corpuscular HGB CONC 31.4 g/dL (32.0-36.0); Mean Platelet Volume 12.8 fL (7.4-10.4); PLT Morphology Comment Appears Adequate; Platelet Count 173 thou/uL (130-400); RBC Distribution Width 13.6 % (11.5-14.5); RBC Morphology Normal; Red Blood Cell (RBC) Count 4.59 mill/uL (4.70-6.10); White Blood Cell (WBC) Count 12.1 thou/uL (4.8-10.8)
[2017-04-26 05:46] LABS: ALT (SGPT) 26 U/L (8-55); AST (SGOT) 30 U/L (5-34); Alkaline Phosphatase 117 U/L (40-150); Anion Gap 12 mmol/L (10-20); BUN (Urea Nitrogen) 25 mg/dL (8.4-25.7); Bilirubin, Total 0.7 mg/dL (0.2-1.2); Calc. Creatinine Clearance 120 mL/min (70-130); Calcium 9.3 mg/dL (7.8-10.44); Carbon Dioxide 25 mmol/L (23-31); Chloride 105 mmol/L (98-107); Estimated GFR-MDRD 87; Globulin 3.9 g/dL (2.4-3.5); Glucose 137 mg/dL (83-110); Potassium 4.4 mmol/L (3.5-5.1); Protein, Total 6.9 g/dL (5.8-8.1); Sodium 138 mmol/L (136-145)
--- NOTE | 2017-04-26 07:41 | PRG ---
DATE OF SERVICE: 04/26/2017 SUBJECTIVE: The patient is lying in the bed, resting well. Cooperating well with therapy. No compl aints of shortness of breath, chest pain, nausea, vomiting. Still unable to pass his urine and has c hronic Delgado in place. OBJECTIVE: He did walk 48 feet yesterday with a rolling walker with standby assistance, was able to assist with transfers. VITAL SIGNS: Vital signs showed him to have blood pressure 141/77, O2 sats 96% on 2 liters, temperat ure 96, pulse 56, respirations 20. LUNGS: Show decreased breath sounds in the bases. No rales or rhonchi. CARDIAC: Shows an irregularly irregular rhythm, no gallops or murmurs. LABORATORY: Shows sodium 138, potassium 4.4, chloride 105, bicarb 25, BUN 25, creatinine 1.85, calci um 9.3, total bilirubin 0.7, albumin 3.0. Sed rate is down to 41, hematocrit 39, hemoglobin 12, whit e count 12,100. ASSESSMENT: 1. 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 2. Atrial fibrillation with rate control on anticoagulation. 3. Obstructive sleep apnea, stable with mild oxygen requirements. 4. Morbid obesity, stable. 5. Type 2 diabetes, controlled to goal. 6. Chronic urinary retention on tamsulosin and now on Avodart with Delgado catheter until more ambulat ory.
[2017-04-26] MEDS: Alogliptin 6.25 MG TAB PO SCH (08:25)
[2017-04-26] MEDS: Ascorbic Acid 500 mg Chewable Tablet PO SCH (08:25)
[2017-04-26] MEDS: Cyanocobalamin (Vitamin B-12) 1,000 MCG TAB PO SCH (08:26)
[2017-04-26] MEDS: Aspirin 81 mg Enteric Coated Tablet PO SCH (08:26)
[2017-04-26] MEDS: Clopidogrel Bisulfate 75 MG TAB PO SCH (08:26)
[2017-04-26] MEDS: Calcium Carbonate + Vit D 1 TAB PO SCH (08:26)
[2017-04-26] MEDS: Docusate 100 MG CAP PO SCH ×2 (08:26→20:45)
[2017-04-26] MEDS: Multivitamin W/ Minerals 1 TAB PO SCH (08:27)
[2017-04-26] MEDS: Dutasteride 0.5 MG CAP PO SCH (08:27)
[2017-04-26] MEDS: Finasteride 5 MG TAB PO SCH (08:27)
[2017-04-26 12:11] LABS: CRP (Inflammatory) 2.82 mg/dL (= or < 0.5)
[2017-04-26] MEDS ORDERED: Nystatin Powder 15 GM BOT TOP SCH (15:30)
[2017-04-26] MEDS: HumaLOG 300 UNITS/3 ML VIAL SC PRN (20:44)
[2017-04-26] MEDS: Oxybutynin 5 MG TAB PO SCH (20:45)
[2017-04-26] MEDS: Tamsulosin HCl 0.4 MG CAP PO SCH (20:45)
[2017-04-26] MEDS: Nystatin Powder 15 GM BOT TOP SCH (20:47)
[2017-04-27] MEDS: Levothyroxine Sodium 75 MCG TAB PO SCH (06:12)
[2017-04-27] MEDS: Ascorbic Acid 500 mg Chewable Tablet PO SCH (09:36)
[2017-04-27] MEDS: Cyanocobalamin (Vitamin B-12) 1,000 MCG TAB PO SCH (09:37)
[2017-04-27] MEDS: Dutasteride 0.5 MG CAP PO SCH (09:37)
[2017-04-27] MEDS: Finasteride 5 MG TAB PO SCH (09:37)
[2017-04-27] MEDS: Clopidogrel Bisulfate 75 MG TAB PO SCH (09:37)
[2017-04-27] MEDS: Docusate 100 MG CAP PO SCH ×2 (09:37→20:52)
[2017-04-27] MEDS: Multivitamin W/ Minerals 1 TAB PO SCH (09:37)
[2017-04-27] MEDS: Alogliptin 6.25 MG TAB PO SCH (09:38)
[2017-04-27] MEDS: Calcium Carbonate + Vit D 1 TAB PO SCH (09:38)
[2017-04-27] MEDS: Aspirin 81 mg Enteric Coated Tablet PO SCH (09:38)
[2017-04-27] MEDS: Nystatin Powder 15 GM BOT TOP SCH ×2 (09:39→20:52)
[2017-04-27] MEDS: Oxybutynin 5 MG TAB PO SCH (20:50)
[2017-04-27] MEDS: Tamsulosin HCl 0.4 MG CAP PO SCH (20:50)
[2017-04-27] MEDS: HumaLOG 300 UNITS/3 ML VIAL SC PRN (20:51)
[2017-04-28] MEDS: Levothyroxine Sodium 75 MCG TAB PO SCH (05:43)
[2017-04-28] MEDS: Milk Of Magnesia 30 ML UDCUP PO PRN (05:43)
[2017-04-28] MEDS: Alogliptin 6.25 MG TAB PO SCH (08:20)
[2017-04-28] MEDS: Finasteride 5 MG TAB PO SCH (08:20)
[2017-04-28] MEDS: Ascorbic Acid 500 mg Chewable Tablet PO SCH (08:20)
[2017-04-28] MEDS: Clopidogrel Bisulfate 75 MG TAB PO SCH (08:20)
[2017-04-28] MEDS: Dutasteride 0.5 MG CAP PO SCH (08:21)
[2017-04-28] MEDS: Cyanocobalamin (Vitamin B-12) 1,000 MCG TAB PO SCH (08:21)
[2017-04-28] MEDS: Multivitamin W/ Minerals 1 TAB PO SCH (08:21)
[2017-04-28] MEDS: Aspirin 81 mg Enteric Coated Tablet PO SCH (08:21)
[2017-04-28] MEDS: Docusate 100 MG CAP PO SCH ×2 (08:21→21:18)
[2017-04-28] MEDS: Calcium Carbonate + Vit D 1 TAB PO SCH (08:21)
[2017-04-28] MEDS: Nystatin Powder 15 GM BOT TOP SCH ×2 (08:22→21:19)
--- NOTE | 2017-04-28 08:39 | PRG ---
DATE OF SERVICE: 04/28/2017 DATE OF ADMISSION: 03/07/2017 HISTORY OF PRESENT ILLNESS: Mr. Schreiber is a pleasant 82-year-old white male. He had an infected left prosthetic knee with Enterococcus. He had a surgical debridement done and functional spatial placed with antibiotics. He was placed on daptomycin 1000 mg IV. He is nonweightbearing and was transferre d to [facility] for continued antibiotic care, physical therapy and manager occupational apy. The patient states he is doing very well this morning, he has no complaints. He states he enjoyed [employer] s breakfast and ate all of it. PHYSICAL EXAMINATION: VITAL SIGNS: Reveal blood pressure this morning 140/80, pulse 60, respirations 18, O2 sat 97% on 2 l iters, T-max 98 degrees. GENERAL: This is a well-developed, well-nourished, very pleasant white male in no apparent distress at this time. HEENT: Reveals normocephalic and nontraumatic cranium. Pupils are equally round and reactive. Extr aocular movements intact. Nose and throat are slightly dry, but clear. NECK: Supple, without masses, nodes or bruits. CHEST: Clear to auscultation. No rales, rhonchi or wheezes are heard. Patient's cough is gone. HEART: Reveals a regular rate and rhythm without murmurs, gallops or rubs. ABDOMEN: Obese, soft, nontender without organomegaly. Normal bowel sounds are noted. No rebound or guarding is noted. GENITOURINARY: Deferred. MUSCULOSKELETAL: Left knee reveals immobilizers gone. Some slight redness around where the sutures were, most of the scabbing is gone, no significant pain is noted. IMPRESSION: 1. Enterococcus infection of left prosthetic knee with spacer antibiotics. 2. Diabetes type 2. 3. Obstructive sleep apnea. 4. Diastolic heart failure. 5. Del Valle's esophagitis. 6. History of atrial fibrillation. 7. Recurrent deep venous thrombosis. 8. History of gastrointestinal ulcer with life threatening gastrointestinal bleed in the distant pas t. 9. Generalized weakness. 10. Occasional confusion. PLAN: 1. We will continue antibiotics per Dr. Arboleda. 2. Continue present meds. 3. Decubitus precautions. 4. Stress ulcer prophylaxis. 5. DVT precautions. 6. Supportive care.
[2017-04-28] MEDS: HumaLOG 300 UNITS/3 ML VIAL SC PRN (11:46)
[2017-04-28] MEDS ORDERED: Zinc Oxide 16% Ointment 60 gm Tube TOP PRN (16:32)
[2017-04-28] MEDS: Melatonin 3 MG TAB PO PRN (21:18)
[2017-04-28] MEDS: Oxybutynin 5 MG TAB PO SCH (21:18)
[2017-04-28] MEDS: Tamsulosin HCl 0.4 MG CAP PO SCH (21:18)
[2017-04-29] MEDS: Levothyroxine Sodium 75 MCG TAB PO SCH (06:20)
[2017-04-29] MEDS: Milk Of Magnesia 30 ML UDCUP PO PRN (06:20)
[2017-04-29] MEDS: Ascorbic Acid 500 mg Chewable Tablet PO SCH (08:50)
[2017-04-29] MEDS: Clopidogrel Bisulfate 75 MG TAB PO SCH (08:50)
[2017-04-29] MEDS: Multivitamin W/ Minerals 1 TAB PO SCH (08:50)
[2017-04-29] MEDS: Cyanocobalamin (Vitamin B-12) 1,000 MCG TAB PO SCH (08:51)
[2017-04-29] MEDS: Alogliptin 6.25 MG TAB PO SCH (08:51)
[2017-04-29] MEDS: Calcium Carbonate + Vit D 1 TAB PO SCH (08:51)
[2017-04-29] MEDS: Finasteride 5 MG TAB PO SCH (08:51)
[2017-04-29] MEDS: Aspirin 81 mg Enteric Coated Tablet PO SCH (08:52)
[2017-04-29] MEDS: Dutasteride 0.5 MG CAP PO SCH (08:52)
[2017-04-29] MEDS: Docusate 100 MG CAP PO SCH ×2 (08:52→20:35)
--- NOTE | 2017-04-29 09:21 | PRG ---
DATE OF SERVICE: 04/29/2017 SUBJECTIVE: Mr. Schreiber is a very pleasant 82-year-old white male with an infected left prosthetic knee with Enterococcus. Surgical debridement was done and patient had specially placed antibiotics. He is on daptomycin 1000 mg IV. He is nonweightbearing and was transferred to [facility] for his continued physical therapy, occupational therapy, and antibiotic care. He is being followe d by Dr. Arboleda. The patient states he is doing well this morning. He is waiting for his breakfast this morning. He had a great day and looking forward to lying in bed watching football today. PHYSICAL EXAMINATION: GENERAL: This is a well-developed, well-nourished, very pleasant white male in no apparent distress at this time. VITAL SIGNS: This morning reveal blood pressure 134/64, pulse 60, respirations 18-22, O2 sat 95%-97% on 2 liters, and T-max 97.5. HEENT: Reveals normocephalic, nontraumatic cranium. Pupils are equally round and reactive. Extraoc ular movements intact. Nose and throat are slightly dry. NECK: Supple, without masses, nodes or bruits. LUNGS: Chest is clear to auscultation. No rales, rhonchi or wheezes are heard. The patient has no cough. CARDIOVASCULAR: Reveals a regular rate and rhythm without murmurs, gallops or rubs. ABDOMEN: Obese, soft, nontender, without organomegaly. Normal bowel sounds are noted. No rebound o r guarding is noted. GENITOURINARY: Deferred. EXTREMITIES: Reveal no clubbing, cyanosis or edema. The left leg is still healing well, slightly wa rm, but not really red. No suture removing, no significant pain. IMPRESSION: 1. Enterococcus urinary tract infection prosthetic knee with spacer antibiotics and IV antibiotics w ith Enterococcus. 2. Diabetes type 2, which is well controlled. 3. Obstructive sleep apnea. 4. Diastolic heart failure. 5. Del Valle esophagitis. 6. History of atrial fibrillation. 7. Recurrent deep venous thrombosis. 8. History of gastrointestinal ulcer with life threatening gastrointestinal bleeds in the past. 9. Occasional confusion. 10. Generalized weakness. PLAN: 1. Continue antibiotics per Dr. Arboleda. 2. Continue present medications. 3. Decubitus precautions. 4. Stress ulcer prophylaxis. 5. DVT precautions. 6. Physical therapy and occupational therapy. 7. Supportive care.
[2017-04-29] MEDS: Nystatin Powder 15 GM BOT TOP SCH ×2 (10:30→20:35)
[2017-04-29] MEDS: HumaLOG 300 UNITS/3 ML VIAL SC PRN ×2 (12:03→20:36)
[2017-04-29] MEDS: Oxybutynin 5 MG TAB PO SCH (20:34)
[2017-04-29] MEDS: Tamsulosin HCl 0.4 MG CAP PO SCH (20:34)
[2017-04-30] MEDS: Levothyroxine Sodium 75 MCG TAB PO SCH (05:38)
[2017-04-30] MEDS: Alogliptin 6.25 MG TAB PO SCH (08:37)
[2017-04-30] MEDS: Aspirin 81 mg Enteric Coated Tablet PO SCH (08:38)
[2017-04-30] MEDS: Calcium Carbonate + Vit D 1 TAB PO SCH (08:38)
[2017-04-30] MEDS: Ascorbic Acid 500 mg Chewable Tablet PO SCH (08:38)
[2017-04-30] MEDS: Cyanocobalamin (Vitamin B-12) 1,000 MCG TAB PO SCH (08:39)
[2017-04-30] MEDS: Clopidogrel Bisulfate 75 MG TAB PO SCH (08:39)
[2017-04-30] MEDS: Nystatin Powder 15 GM BOT TOP SCH ×2 (08:40→20:40)
[2017-04-30] MEDS: Docusate 100 MG CAP PO SCH ×2 (08:40→20:39)
[2017-04-30] MEDS: Multivitamin W/ Minerals 1 TAB PO SCH (08:40)
[2017-04-30] MEDS: Dutasteride 0.5 MG CAP PO SCH (08:40)
[2017-04-30] MEDS: Finasteride 5 MG TAB PO SCH (08:40)
[2017-04-30] MEDS: Milk Of Magnesia 30 ML UDCUP PO PRN (08:49)
--- NOTE | 2017-04-30 12:46 | PRG ---
DATE OF SERVICE: 04/30/2017 SUBJECTIVE: The patient feels well, lying in bed, visiting with , has been cooperating well with therapy, sleeping well at night. No pain. Decreased insomnia, confusion and no dyspnea at rest. OBJECTIVE: VITAL SIGNS: Shows temperature is 96.9, pulse 60, respirations 20, O2 sats 94% on 2 liters and blood pressure 143/83. LUNGS: Show decreased breath sounds in bases. CARDIAC: Examination shows an irregular regular rhythm. ABDOMEN: Morbidly obese. SKIN AND EXTREMITIES: Left knee shows no erythema, warmth or tenderness. Skin show no edema, clubbi ng, cyanosis. ASSESSMENT: 1. 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 2. Atrial fibrillation with rate control, on anticoagulation. 3. Obstructive sleep apnea. 4. Morbid obesity, requiring mild oxygen requirements at night at 1-2 liters. 5. Type 2 diabetes, controlled to goal. 6. Chronic urinary retention, on tamsulosin and Avodart, but still requiring Delgado. PLAN: Repeat CBC, sed rate and comp metabolic profile in the a.m.
[2017-04-30] MEDS: HumaLOG 300 UNITS/3 ML VIAL SC PRN (20:39)
[2017-04-30] MEDS: Tamsulosin HCl 0.4 MG CAP PO SCH (20:40)
[2017-04-30] MEDS: Oxybutynin 5 MG TAB PO SCH (20:40)
[2017-05-01] MEDS: Levothyroxine Sodium 75 MCG TAB PO SCH (05:47)
[2017-05-01 05:53] LABS: ALT (SGPT) 31 U/L (8-55); AST (SGOT) 35 U/L (5-34); Albumin 2.9 g/dL (3.4-4.8); Alkaline Phosphatase 110 U/L (40-150); Anion Gap 12 mmol/L (10-20); BUN (Urea Nitrogen) 19 mg/dL (8.4-25.7); Bilirubin, Total 0.6 mg/dL (0.2-1.2); Calc. Creatinine Clearance 117 mL/min (70-130); Calcium 9.3 mg/dL (7.8-10.44); Carbon Dioxide 21 mmol/L (23-31); Chloride 108 mmol/L (98-107); Estimated GFR-MDRD 84; Globulin 3.8 g/dL (2.4-3.5); Glucose 119 mg/dL (83-110); Potassium 4.4 mmol/L (3.5-5.1); Protein, Total 6.7 g/dL (5.8-8.1); Sodium 137 mmol/L (136-145)
[2017-05-01 05:55] LABS: #Basophils 0.1 thou/uL (0.0-0.2); #Eosinphils 1.1 thou/uL (0.0-0.7); #Lymphocytes 2.6 thou/uL (1.20-3.40); #Monocytes 1.1 thou/uL (0.11-0.59); %Basophils 1.2 % (0.0-1.0); %Eosinophils 10.3 % (0.0-10.0); %Lymphocytes 23.3 % (21.0-51.0); %Monocytes 10.3 % (0.0-10.0); %Neutrophils 54.8 % (42.0-75.0); Hemoglobin 12.1 g/dL (14.0-18.0); Mean Corpuscular HGB CONC 31.2 g/dL (32.0-36.0); Mean Corpuscular Hemoglobin 27.3 pg (27.0-31.0); Mean Corpuscular Volume 87.4 fl (80.0-94.0); Platelet Count 139 thou/uL (130-400); RBC Distribution Width 13.9 % (11.5-14.5); Red Blood Cell (RBC) Count 4.45 mill/uL (4.70-6.10); White Blood Cell (WBC) Count 10.9 thou/uL (4.8-10.8)
[2017-05-01] MEDS: Alogliptin 6.25 MG TAB PO SCH (08:39)
[2017-05-01] MEDS: Aspirin 81 mg Enteric Coated Tablet PO SCH (08:40)
[2017-05-01] MEDS: Ascorbic Acid 500 mg Chewable Tablet PO SCH (08:40)
[2017-05-01] MEDS: Cyanocobalamin (Vitamin B-12) 1,000 MCG TAB PO SCH (08:41)
[2017-05-01] MEDS: Clopidogrel Bisulfate 75 MG TAB PO SCH (08:41)
[2017-05-01] MEDS: Docusate 100 MG CAP PO SCH ×2 (08:41→20:31)
[2017-05-01] MEDS: Finasteride 5 MG TAB PO SCH (08:41)
[2017-05-01] MEDS: Calcium Carbonate + Vit D 1 TAB PO SCH (08:41)
[2017-05-01] MEDS: Dutasteride 0.5 MG CAP PO SCH (08:42)
[2017-05-01] MEDS: Multivitamin W/ Minerals 1 TAB PO SCH (08:42)
[2017-05-01] MEDS: Nystatin Powder 15 GM BOT TOP SCH ×2 (08:42→20:31)
[2017-05-01] MEDS: Tamsulosin HCl 0.4 MG CAP PO SCH (20:31)
[2017-05-01] MEDS: Oxybutynin 5 MG TAB PO SCH (20:31)
[2017-05-02] MEDS: Melatonin 3 MG TAB PO PRN (03:14)
[2017-05-02] MEDS: Levothyroxine Sodium 75 MCG TAB PO SCH (06:00)
[2017-05-02] MEDS: Milk Of Magnesia 30 ML UDCUP PO PRN (09:01)
[2017-05-02] MEDS: Alogliptin 6.25 MG TAB PO SCH (09:02)
[2017-05-02] MEDS: Docusate 100 MG CAP PO SCH ×2 (09:02→20:18)
[2017-05-02] MEDS: Calcium Carbonate + Vit D 1 TAB PO SCH (09:02)
[2017-05-02] MEDS: Finasteride 5 MG TAB PO SCH (09:03)
[2017-05-02] MEDS: Clopidogrel Bisulfate 75 MG TAB PO SCH (09:03)
[2017-05-02] MEDS: Ascorbic Acid 500 mg Chewable Tablet PO SCH (09:03)
[2017-05-02] MEDS: Cyanocobalamin (Vitamin B-12) 1,000 MCG TAB PO SCH (09:03)
[2017-05-02] MEDS: Multivitamin W/ Minerals 1 TAB PO SCH (09:03)
[2017-05-02] MEDS: Aspirin 81 mg Enteric Coated Tablet PO SCH (09:04)
[2017-05-02] MEDS: Dutasteride 0.5 MG CAP PO SCH (09:06)
[2017-05-02] MEDS: Nystatin Powder 15 GM BOT TOP SCH ×2 (09:07→20:18)
--- NOTE | 2017-05-02 10:53 | PRG ---
DATE OF SERVICE: 05/01/2017 SUBJECTIVE: The patient feels well, lying in bed, no complaints. Cooperating with therapy and visit ing with . OBJECTIVE: GENERAL: Left knee does show some mild increased erythema, but no tenderness. VITAL SIGNS: Show temperature 95.3, pulse 56, respirations 20, O2 sat 96% on 2 liters, blood pressur e 142/71. LABORATORY DATA: White count is 10,900, hematocrit 38, hemoglobin 12. Sed rate down to 29. Accu-Ch eks 117-174. Sodium 137, potassium 4.4, chloride 108, bicarbonate 21, BUN 19, creatinine 0.87. ASSESSMENT: 1. 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 2. Stable obstructive sleep apnea, only fair compliance with CPAP. 3. Stable diabetes type 2. 4. Stable atrial fibrillation with rate control, but no anticoagulation secondary to previous gastro intestinal bleeding. 5. Improving hospital delirium. PLAN: Continue PT, OT, continued IV daptomycin for full 42 days. Follow up with Dr. Mckeon after fi nishing of daptomycin.
[2017-05-02] MEDS: HumaLOG 300 UNITS/3 ML VIAL SC PRN (12:07)
[2017-05-02] MEDS: Oxybutynin 5 MG TAB PO SCH (20:18)
[2017-05-02] MEDS: Tamsulosin HCl 0.4 MG CAP PO SCH (20:19)
[2017-05-03] MEDS: Levothyroxine Sodium 75 MCG TAB PO SCH (05:19)
[2017-05-03] MEDS: Milk Of Magnesia 30 ML UDCUP PO PRN (05:19)
[2017-05-03] MEDS: Dutasteride 0.5 MG CAP PO SCH (08:37)
[2017-05-03] MEDS: Calcium Carbonate + Vit D 1 TAB PO SCH (08:37)
[2017-05-03] MEDS: Ascorbic Acid 500 mg Chewable Tablet PO SCH (08:37)
[2017-05-03] MEDS: Cyanocobalamin (Vitamin B-12) 1,000 MCG TAB PO SCH (08:38)
[2017-05-03] MEDS: Finasteride 5 MG TAB PO SCH (08:38)
[2017-05-03] MEDS: Aspirin 81 mg Enteric Coated Tablet PO SCH (08:39)
[2017-05-03] MEDS: Docusate 100 MG CAP PO SCH ×2 (08:39→20:31)
[2017-05-03] MEDS: Clopidogrel Bisulfate 75 MG TAB PO SCH (08:39)
[2017-05-03] MEDS: Multivitamin W/ Minerals 1 TAB PO SCH (08:39)
[2017-05-03] MEDS: Alogliptin 6.25 MG TAB PO SCH (08:39)
[2017-05-03] MEDS: Nystatin Powder 15 GM BOT TOP SCH ×2 (08:40→20:31)
--- NOTE | 2017-05-03 10:09 | PRG ---
DATE OF SERVICE: 05/02/2017 SUBJECTIVE: The patient lying in the bed, resting well with no complaints, chest pain, shortness dylan ath, knee pain, cooperating well with therapy, sleeping well at night. OBJECTIVE: Shows temperature 95.5, pulse 63, respirations 20, O2 sats 97%, and blood pressure 134/75 . LABORATORY DATA: Laboratory show white count is down 10,900, hematocrit 38, hemoglobin 12. Sed rate down to 29. Sodium 137, potassium 4.4, chloride 108, bicarbonate 21, BUN 19, creatinine 0.87, AST 3 5, ALT 31. Left knee shows minimal warmth, no tenderness, erythema with improved range of motion. P hysical therapy states that patient is walking 25 feet x3. Complete guard assist and appeared to be making progress, but is not to go yet. No evidence of decompensation of cardiac pulmonary function d uring therapy. ASSESSMENT: Resolving vancomycin-resistant enterococci infection of left prosthetic knee on IV Rocep hin until 05/19/2017. PLAN: Continue PT, OT.
[2017-05-03] MEDS: HumaLOG 300 UNITS/3 ML VIAL SC PRN (11:55)
[2017-05-03] MEDS: Oxybutynin 5 MG TAB PO SCH (20:31)
[2017-05-03] MEDS: HYDROcodone/Acetaminophen 10/325 mg Tablet PO PRN (20:32)
[2017-05-03] MEDS: Tamsulosin HCl 0.4 MG CAP PO SCH (20:32)
[2017-05-04] MEDS: Levothyroxine Sodium 75 MCG TAB PO SCH (05:13)
[2017-05-04] MEDS: Cyanocobalamin (Vitamin B-12) 1,000 MCG TAB PO SCH (08:53)
[2017-05-04] MEDS: Calcium Carbonate + Vit D 1 TAB PO SCH (08:54)
[2017-05-04] MEDS: Dutasteride 0.5 MG CAP PO SCH (08:54)
[2017-05-04] MEDS: Finasteride 5 MG TAB PO SCH (08:54)
[2017-05-04] MEDS: Aspirin 81 mg Enteric Coated Tablet PO SCH (08:54)
[2017-05-04] MEDS: Ascorbic Acid 500 mg Chewable Tablet PO SCH (08:54)
[2017-05-04] MEDS: Docusate 100 MG CAP PO SCH ×2 (08:54→20:51)
[2017-05-04] MEDS: Alogliptin 6.25 MG TAB PO SCH (08:54)
[2017-05-04] MEDS: Multivitamin W/ Minerals 1 TAB PO SCH (08:54)
[2017-05-04] MEDS: Clopidogrel Bisulfate 75 MG TAB PO SCH (08:54)
[2017-05-04] MEDS: Nystatin Powder 15 GM BOT TOP SCH ×2 (08:57→20:53)
--- NOTE | 2017-05-04 19:03 | PRG ---
DATE OF SERVICE: 05/03/2017 SUBJECTIVE: The patient feels well with increasing strength. No pain in his leg. No shortness of b reath. No confusion or palpitations. Good appetite. OBJECTIVE: VITAL SIGNS: Blood pressure is 120/70, temperature 96, pulse 68, respirations 18, O2 sats 96% on 2 l iters. Accu-Cheks range 124-154. LUNGS: Clear with decreased breath sounds in bases. CARDIAC: Examination shows an irregularly irregular rhythm. ABDOMEN: Obese and nontender. SKIN/EXTREMITIES: Left knee shows no erythema, warmth or tenderness. ASSESSMENT: 1. Resolving VRE infection of left knee on daptomycin, to finish a full 42-day course 2. Obstructive sleep apnea, stable 3. Morbid obesity, stable. 2. Atrial fibrillation, stable. 5. Hospital delirium appears to be improving. PLAN: 1. Continue PT, OT as patient is now walking 16 feet at a time with only standby assistance and do i t several times daily. 2. Continue daptomycin for full 42 days. 3. Continue to monitor for delirium. 4. Continue rate control of atrial fibrillation.
--- NOTE | 2017-05-04 19:05 | PRG ---
DATE OF SERVICE: 05/04/2017 SUBJECTIVE: The patient feels well with no complaints. Ready to do more therapy, slept well, good a ppetite, no pain in his knee. ASSESSMENT: Left knee shows no erythema, warmth, tenderness on palpation. OBJECTIVE: ABDOMEN: Soft, nontender. LUNGS: Clear. CARDIAC: Shows regular rhythm. VITAL SIGNS: Shows temperature 95.6, pulse 64, respirations 20, O2 on 2 liters with 95% sat, and blo od pressure 129/72. LUNGS: Clear. CARDIAC: Shows an irregularly irregular rhythm. ABDOMEN: Obese. EXTREMITIES: Left leg shows no erythema, warmth, or tenderness of the knee and healing incision. ASSESSMENT: 1. 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 2. Stable morbid obesity. 3. Stable obstructive sleep apnea. 4. Stable atrial fibrillation with rate control, but no anticoagulation. 5. Benign prostatic hypertrophy, improving on Flomax. PLAN: Discontinue Delgado today and monitor urine retention and output. Continue PT, OT. Continue IV daptomycin.
[2017-05-04] MEDS: Oxybutynin 5 MG TAB PO SCH (20:51)
[2017-05-04] MEDS: Tamsulosin HCl 0.4 MG CAP PO SCH (20:51)
[2017-05-04] MEDS: HYDROcodone/Acetaminophen 10/325 mg Tablet PO PRN (20:51)
[2017-05-05] MEDS: Levothyroxine Sodium 75 MCG TAB PO SCH (05:46)
[2017-05-05] MEDS: Ascorbic Acid 500 mg Chewable Tablet PO SCH (08:49)
[2017-05-05] MEDS: Alogliptin 6.25 MG TAB PO SCH (08:49)
[2017-05-05] MEDS: Aspirin 81 mg Enteric Coated Tablet PO SCH (08:50)
[2017-05-05] MEDS: Calcium Carbonate + Vit D 1 TAB PO SCH (08:50)
[2017-05-05] MEDS: Docusate 100 MG CAP PO SCH ×2 (08:50→21:08)
[2017-05-05] MEDS: Clopidogrel Bisulfate 75 MG TAB PO SCH (08:50)
[2017-05-05] MEDS: Cyanocobalamin (Vitamin B-12) 1,000 MCG TAB PO SCH (08:50)
[2017-05-05] MEDS: Dutasteride 0.5 MG CAP PO SCH (08:51)
[2017-05-05] MEDS: Nystatin Powder 15 GM BOT TOP SCH ×2 (08:51→21:08)
[2017-05-05] MEDS: Finasteride 5 MG TAB PO SCH (08:51)
[2017-05-05] MEDS: Multivitamin W/ Minerals 1 TAB PO SCH (08:51)
[2017-05-05] MEDS: Oxybutynin 5 MG TAB PO SCH (21:08)
[2017-05-05] MEDS: Tamsulosin HCl 0.4 MG CAP PO SCH (21:08)
--- NOTE | 2017-05-05 21:08 | PRG ---
DATE OF SERVICE: 05/05/2017 SUBJECTIVE: The patient feels well and his Delgado catheter with no dysuria, no urinary retention and having no pain in his knee, no shortness of breath, chest pain, sleeping well, good appetite. OBJECTIVE: VITAL SIGNS: Showed blood pressures 136/68, O2 sats 98%, respirations 19, pulse 64, afebrile. LUNGS: Clear. CARDIAC: Shows an irregular rhythm. ABDOMEN: Soft, nontender. EXTREMITIES: Left knee shows no erythema, warmth, or tenderness. ASSESSMENT: 1. Resolving VRE infection of the left knee, on daptomycin 42 days. 2. Stable morbid obesity. 3. Benign prostatic hypertrophy, improved on Flomax and Delgado catheter out. 4. Stable atrial fibrillation with rate control. 5. Stable obstructive sleep apnea. PLAN: Continue to monitor. Urinary retention, continue daptomycin for a total of 42 days. Continue PT, OT.
[2017-05-05] MEDS: HYDROcodone/Acetaminophen 10/325 mg Tablet PO PRN (21:12)
[2017-05-05] MEDS: HumaLOG 300 UNITS/3 ML VIAL SC PRN (21:15)
[2017-05-06] MEDS: Levothyroxine Sodium 75 MCG TAB PO SCH (05:54)
[2017-05-06] MEDS: Alogliptin 6.25 MG TAB PO SCH (08:58)
[2017-05-06] MEDS: Cyanocobalamin (Vitamin B-12) 1,000 MCG TAB PO SCH (08:59)
[2017-05-06] MEDS: Calcium Carbonate + Vit D 1 TAB PO SCH (08:59)
[2017-05-06] MEDS: Ascorbic Acid 500 mg Chewable Tablet PO SCH (08:59)
[2017-05-06] MEDS: Aspirin 81 mg Enteric Coated Tablet PO SCH (08:59)
[2017-05-06] MEDS: Multivitamin W/ Minerals 1 TAB PO SCH (09:00)
[2017-05-06] MEDS: Docusate 100 MG CAP PO SCH ×2 (09:00→21:50)
[2017-05-06] MEDS: Clopidogrel Bisulfate 75 MG TAB PO SCH (09:00)
[2017-05-06] MEDS: Finasteride 5 MG TAB PO SCH (09:00)
[2017-05-06] MEDS: Dutasteride 0.5 MG CAP PO SCH (09:00)
[2017-05-06] MEDS: Nystatin Powder 15 GM BOT TOP SCH ×2 (09:01→21:51)
--- NOTE | 2017-05-06 19:36 | PRG ---
DATE OF SERVICE: 05/06/2017. SUBJECTIVE: The patient feels well, resting in bed with no complaints of shortness of breath, chest pain, orthopnea, paroxysmal nocturnal dyspnea, having decreasing pain in knee. Does have occasional anxiety attacks and is complaining of some mild depression. OBJECTIVE: VITAL SIGNS: Blood pressures 150/72, temperature 97, pulse 62, respirations 16, O2 sats 97% on 2 lit ers. LUNGS: Clear. CARDIAC: Shows irregular rhythm. MUSCULOSKELETAL: Left knee is not inflamed, swollen, or red. LABORATORY DATA: Accu-Cheks ranged 123-193. ASSESSMENT: 1. 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 2. Stable atrial fibrillation on no anticoagulation with good rate control. 3. Stable type 2 diabetes. 4. Stable obstructive sleep apnea, occasional CPAP. 5. Increasing anxiety and depression. PLAN: 1. Start citalopram 10 mg daily. 2. Continue daptomycin until 05/18/2017. 3. Arrange follow up with Dr. Mckeon and Dr. Mckeon. 4. Continue to monitor for urinary retention.
[2017-05-06] MEDS: Tamsulosin HCl 0.4 MG CAP PO SCH (21:50)
[2017-05-06] MEDS: Oxybutynin 5 MG TAB PO SCH (21:50)
[2017-05-06] MEDS: HYDROcodone/Acetaminophen 10/325 mg Tablet PO PRN (21:51)
[2017-05-07] MEDS: Levothyroxine Sodium 75 MCG TAB PO SCH (05:11)
[2017-05-07] MEDS: Ascorbic Acid 500 mg Chewable Tablet PO SCH (08:00)
[2017-05-07] MEDS: Clopidogrel Bisulfate 75 MG TAB PO SCH (08:01)
[2017-05-07] MEDS: Alogliptin 6.25 MG TAB PO SCH (08:01)
[2017-05-07] MEDS: Docusate 100 MG CAP PO SCH ×2 (08:01→20:52)
[2017-05-07] MEDS: Cyanocobalamin (Vitamin B-12) 1,000 MCG TAB PO SCH (08:01)
[2017-05-07] MEDS: Multivitamin W/ Minerals 1 TAB PO SCH (08:01)
[2017-05-07] MEDS: Dutasteride 0.5 MG CAP PO SCH (08:02)
[2017-05-07] MEDS: Aspirin 81 mg Enteric Coated Tablet PO SCH (08:02)
[2017-05-07] MEDS: Calcium Carbonate + Vit D 1 TAB PO SCH (08:02)
[2017-05-07] MEDS: Finasteride 5 MG TAB PO SCH (08:02)
[2017-05-07] MEDS: Citalopram 10 MG TAB PO SCH (08:02)
[2017-05-07] MEDS: Nystatin Powder 15 GM BOT TOP SCH ×2 (08:02→20:53)
[2017-05-07] MEDS: Milk Of Magnesia 30 ML UDCUP PO PRN (08:03)
[2017-05-07] MEDS: HumaLOG 300 UNITS/3 ML VIAL SC PRN ×2 (12:18→16:28)
--- NOTE | 2017-05-07 19:48 | PRG ---
DATE OF SERVICE: 05/07/2017 SUBJECTIVE: The patient feels well, lying in bed with no complaints. Cooperating well with therapy. OBJECTIVE: Temperature 98.5, pulse 60, respiratory 17, O2 sat is 92% on 2 liters, blood pressure 120 /70. LABORATORY DATA: White count 10, hematocrit 38, hemoglobin 12, sed rate is down to 29. Accu-Cheks r opal 157-162. ASSESSMENT: 1. Resolving vancomycin-resistant enterococci infection of left knee. 2. Stable atrial fibrillation with rate control. 3. Chronic obstructive pulmonary disease, stable. 4. Obstructive sleep apnea, stable. 5. Deconditioning, improving daily. 6. Depression anxiety, started on citalopram. PLAN: Continue daptomycin until 05/18/2017, continue citalopram 10 mg daily, continue to monitor uri nary retention. Follow up with Orthopedics and Neurology. Continue to monitor Accu-Cheks, diabetic control.
[2017-05-07] MEDS: Oxybutynin 5 MG TAB PO SCH (20:53)
[2017-05-07] MEDS: Tamsulosin HCl 0.4 MG CAP PO SCH (20:53)
[2017-05-07] MEDS: HYDROcodone/Acetaminophen 10/325 mg Tablet PO PRN (20:55)
[2017-05-08] MEDS: Levothyroxine Sodium 75 MCG TAB PO SCH (05:38)
[2017-05-08] MEDS: Alogliptin 6.25 MG TAB PO SCH (08:51)
[2017-05-08] MEDS: Ascorbic Acid 500 mg Chewable Tablet PO SCH (08:51)
[2017-05-08] MEDS: Dutasteride 0.5 MG CAP PO SCH (08:52)
[2017-05-08] MEDS: Calcium Carbonate + Vit D 1 TAB PO SCH (08:52)
[2017-05-08] MEDS: Citalopram 10 MG TAB PO SCH (08:52)
[2017-05-08] MEDS: Cyanocobalamin (Vitamin B-12) 1,000 MCG TAB PO SCH (08:52)
[2017-05-08] MEDS: Clopidogrel Bisulfate 75 MG TAB PO SCH (08:53)
[2017-05-08] MEDS: Aspirin 81 mg Enteric Coated Tablet PO SCH (08:53)
[2017-05-08] MEDS: Docusate 100 MG CAP PO SCH ×2 (08:53→20:40)
[2017-05-08] MEDS: Finasteride 5 MG TAB PO SCH (08:53)
[2017-05-08] MEDS: Multivitamin W/ Minerals 1 TAB PO SCH (08:53)
[2017-05-08] MEDS: Nystatin Powder 15 GM BOT TOP SCH ×2 (08:56→20:41)
[2017-05-08] MEDS: HYDROcodone/Acetaminophen 10/325 mg Tablet PO PRN (15:29)
[2017-05-08] MEDS: HumaLOG 300 UNITS/3 ML VIAL SC PRN (16:55)
--- NOTE | 2017-05-08 20:11 | PRG ---
DATE OF SERVICE: 05/08/2017 SUBJECTIVE: The patient feels well with decreasing pain, increasing strength. No nausea, palpitatio ns or chest pain. OBJECTIVE: VITAL SIGNS: Shows blood pressure 141/72, temperature 97, pulse 60, respirations 17, O2 sats 96% on 2 liters. Accu-Cheks range 109-128. LUNGS: Clear. CARDIAC: Shows irregular rhythm. ABDOMEN: Soft and nontender with no masses or organomegaly. EXTREMITIES: Display no edema, clubbing, or cyanosis. Knee is healing well with minimal swelling. No erythema, warmth, or tenderness. ASSESSMENT: Resolving vancomycin-resistant enterococci infection of left knee, stable atrial fibrill ation, stable chronic obstructive pulmonary disease, stable sleep apnea, improving deconditioning. PLAN: 1. Obtain CBC, comp metabolic, sed rate, CRP in the a.m. 2. Continue daptomycin for a full 42 days. 3. Continue PT, OT.
[2017-05-08] MEDS: Tamsulosin HCl 0.4 MG CAP PO SCH (20:41)
[2017-05-08] MEDS: Oxybutynin 5 MG TAB PO SCH (20:41)
[2017-05-09] MEDS: Levothyroxine Sodium 75 MCG TAB PO SCH (05:02)
[2017-05-09] MEDS: Milk Of Magnesia 30 ML UDCUP PO PRN (05:02)
[2017-05-09 05:46] LABS: #Basophils 0.1 thou/uL (0.0-0.2); #Lymphocytes 2.6 thou/uL (1.20-3.40); #Neutrophils 5.6 thou/uL (1.40-6.50); %Basophils 1.3 % (0.0-1.0); %Eosinophils 9.4 % (0.0-10.0); %Monocytes 9.9 % (0.0-10.0); %Neutrophils 54.3 % (42.0-75.0); Hemoglobin 12.2 g/dL (14.0-18.0); Mean Corpuscular HGB CONC 31.2 g/dL (32.0-36.0); Mean Corpuscular Volume 86.4 fl (80.0-94.0); Mean Platelet Volume 11.6 fL (7.4-10.4); Platelet Count 125 thou/uL (130-400); Red Blood Cell (RBC) Count 4.53 mill/uL (4.70-6.10); White Blood Cell (WBC) Count 10.3 thou/uL (4.8-10.8)
[2017-05-09 06:04] LABS: ALT (SGPT) 36 U/L (8-55); AST (SGOT) 32 U/L (5-34); Albumin 3.1 g/dL (3.4-4.8); Alkaline Phosphatase 111 U/L (40-150); Anion Gap 11 mmol/L (10-20); BUN (Urea Nitrogen) 20 mg/dL (8.4-25.7); Bilirubin, Total 0.5 mg/dL (0.2-1.2); Calc. Creatinine Clearance 117 mL/min (70-130); Calcium 9.5 mg/dL (7.8-10.44); Carbon Dioxide 26 mmol/L (23-31); Chloride 104 mmol/L (98-107); Estimated GFR-MDRD 84; Globulin 3.8 g/dL (2.4-3.5); Glucose 109 mg/dL (83-110); Potassium 4.4 mmol/L (3.5-5.1); Protein, Total 6.9 g/dL (5.8-8.1); Sodium 137 mmol/L (136-145)
[2017-05-09] MEDS: Aspirin 81 mg Enteric Coated Tablet PO SCH (08:22)
[2017-05-09] MEDS: Ascorbic Acid 500 mg Chewable Tablet PO SCH (08:22)
[2017-05-09] MEDS: Calcium Carbonate + Vit D 1 TAB PO SCH (08:22)
[2017-05-09] MEDS: Alogliptin 6.25 MG TAB PO SCH (08:22)
[2017-05-09] MEDS: Clopidogrel Bisulfate 75 MG TAB PO SCH (08:23)
[2017-05-09] MEDS: Docusate 100 MG CAP PO SCH ×2 (08:23→20:54)
[2017-05-09] MEDS: Dutasteride 0.5 MG CAP PO SCH (08:23)
[2017-05-09] MEDS: Cyanocobalamin (Vitamin B-12) 1,000 MCG TAB PO SCH (08:23)
[2017-05-09] MEDS: Finasteride 5 MG TAB PO SCH (08:23)
[2017-05-09] MEDS: Citalopram 10 MG TAB PO SCH (08:23)
[2017-05-09] MEDS: Multivitamin W/ Minerals 1 TAB PO SCH (08:24)
[2017-05-09] MEDS: Nystatin Powder 15 GM BOT TOP SCH ×2 (08:24→20:55)
[2017-05-09 12:02] LABS: CRP (Inflammatory) 2.16 mg/dL (= or < 0.5)
[2017-05-09] MEDS: Tamsulosin HCl 0.4 MG CAP PO SCH (20:55)
[2017-05-09] MEDS: Oxybutynin 5 MG TAB PO SCH (20:55)
[2017-05-09] MEDS: HYDROcodone/Acetaminophen 10/325 mg Tablet PO PRN (20:55)
[2017-05-10] MEDS: Levothyroxine Sodium 75 MCG TAB PO SCH (05:03)
[2017-05-10] MEDS: Ascorbic Acid 500 mg Chewable Tablet PO SCH (08:22)
[2017-05-10] MEDS: Alogliptin 6.25 MG TAB PO SCH (08:22)
[2017-05-10] MEDS: Calcium Carbonate + Vit D 1 TAB PO SCH (08:23)
[2017-05-10] MEDS: Aspirin 81 mg Enteric Coated Tablet PO SCH (08:23)
[2017-05-10] MEDS: Clopidogrel Bisulfate 75 MG TAB PO SCH (08:23)
[2017-05-10] MEDS: Cyanocobalamin (Vitamin B-12) 1,000 MCG TAB PO SCH (08:23)
[2017-05-10] MEDS: Citalopram 10 MG TAB PO SCH (08:23)
[2017-05-10] MEDS: Dutasteride 0.5 MG CAP PO SCH (08:24)
[2017-05-10] MEDS: Docusate 100 MG CAP PO SCH ×2 (08:24→20:29)
[2017-05-10] MEDS: Finasteride 5 MG TAB PO SCH (08:25)
[2017-05-10] MEDS: Multivitamin W/ Minerals 1 TAB PO SCH (08:25)
[2017-05-10] MEDS: Nystatin Powder 15 GM BOT TOP SCH ×2 (09:49→20:29)
--- NOTE | 2017-05-10 11:47 | PRG ---
DATE OF SERVICE: 05/09/2017 SUBJECTIVE: The patient feels well. Cooperating well with therapy with no complaints of knee pain. He is passing urine but well, having no shortness breath, tolerating CPAP at night. OBJECTIVE: VITAL SIGNS: O2 sat is 93% on 2 liters, respirations 20, pulse 62, afebrile, blood pressure 139/72. LUNGS: Clear with decreased breath sounds in bases. CARDIAC: Cardiac examination showed an irregularly irregular rhythm. ABDOMEN: Soft, nontender with no masses or organomegaly. EXTREMITIES: Display healing left total knee with minimal erythema, no warmth. LABORATORY: Laboratory show sed rate stable at 33. White count is down 10,300, hematocrit 39, hemo globin 12. Accu-Cheks 118 to 167. C-reactive protein down to 216, sodium 137, potassium 4.4, chlori de 104, bicarb 26, BUN 20, creatinine 0.87, AST 32, ALT 36. ASSESSMENT: 1. Resolving VRE infection of left total knee on daptomycin until 05/18/2017. 2. Sleep apnea, stable on CPAP. 3. Atrial fibrillation with adequate rate control, no anticoagulation secondary to previous bleed. 4. Diabetes type 2, controlled to goal. 5. Anxiety and depression improved. PLAN: 1. Continue PT, OT. 2. Continue IV daptomycin until 05/18/2017. 3. Continue Avodart and finasteride for benign prostatic hypertrophy. 4. Discontinue oxybutynin.
--- NOTE | 2017-05-10 11:51 | PRG ---
DATE OF SERVICE: 05/10/2017 SUBJECTIVE: The patient feels well with some minimal trauma to his left knee with no significant ten derness. He feels slightly weak today, but is cooperating with therapy, sleeping well, controlling h is urine better. OBJECTIVE: VITAL SIGNS: Blood pressure is 139/72, temperature 96, pulse 62, respirations 18, O2 sats 95% on 2 l iters. LUNGS: Lungs are clear, decreased breath sounds in the bases. CARDIAC: Cardiac examination showed an irregularly irregular rhythm. ABDOMEN: Abdomen is soft and nontender. No masses or organomegaly. SKIN AND EXTREMITIES: Show decreasing edema and erythema and tenderness on the left knee. ASSESSMENT: 1. Resolving VRE infection of left knee on daptomycin until 05/18/2017. 2. Stable sleep apnea, on CPAP, fair compliance. 3. Stable chronic obstructive pulmonary disease. 4. Morbid obesity, stable. 5. Benign prostatic hypertrophy with improved control on Avodart and tamsulosin. 6. Atrial fibrillation with adequate rate control, but no anticoagulation secondary to previous blee d. PLAN: Continue daptomycin. Continue PT, OT. Continue to monitor urine flow.
[2017-05-10] MEDS: Tamsulosin HCl 0.4 MG CAP PO SCH (20:29)
[2017-05-10] MEDS: HYDROcodone/Acetaminophen 10/325 mg Tablet PO PRN (23:20)
[2017-05-11] MEDS: Levothyroxine Sodium 75 MCG TAB PO SCH (05:59)
[2017-05-11] MEDS: Cyanocobalamin (Vitamin B-12) 1,000 MCG TAB PO SCH (08:45)
[2017-05-11] MEDS: Citalopram 10 MG TAB PO SCH (08:45)
[2017-05-11] MEDS: Clopidogrel Bisulfate 75 MG TAB PO SCH (08:45)
[2017-05-11] MEDS: Multivitamin W/ Minerals 1 TAB PO SCH (08:45)
[2017-05-11] MEDS: Docusate 100 MG CAP PO SCH ×2 (08:45→20:45)
[2017-05-11] MEDS: Alogliptin 6.25 MG TAB PO SCH (08:45)
[2017-05-11] MEDS: Dutasteride 0.5 MG CAP PO SCH (08:46)
[2017-05-11] MEDS: Calcium Carbonate + Vit D 1 TAB PO SCH (08:46)
[2017-05-11] MEDS: Nystatin Powder 15 GM BOT TOP SCH ×2 (08:46→20:47)
[2017-05-11] MEDS: Ascorbic Acid 500 mg Chewable Tablet PO SCH (08:46)
[2017-05-11] MEDS: Aspirin 81 mg Enteric Coated Tablet PO SCH (08:55)
[2017-05-11] MEDS: HumaLOG 300 UNITS/3 ML VIAL SC PRN (12:05)
[2017-05-11] MEDS: HYDROcodone/Acetaminophen 10/325 mg Tablet PO PRN ×2 (15:59→22:00)
[2017-05-11] MEDS: Tamsulosin HCl 0.4 MG CAP PO SCH (20:45)
[2017-05-12] MEDS: Levothyroxine Sodium 75 MCG TAB PO SCH (05:25)
--- NOTE | 2017-05-12 08:17 | PRG ---
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 Surgical debridement was done and patient has placed antibiotics in the wound. He was a lso on daptomycin 1000 mg IV. He is nonweightbearing and was transferred to [facility] for continued physical therapy and occupational therapy. He is being followed by Dr. Arboleda. The patient states he is doing well. He is eating well and his is in the room and I have answer ed all questions. SUBJECTIVE: VITAL SIGNS: Reveal blood pressure was 138/72, pulse 59-60, respirations 18, O2 sat 96% on 2 liters, temperature max 98 degrees. GENERAL: This is a well-developed, slightly obese white male in no apparent distress at this time. HEENT: Reveals normocephalic, nontraumatic cranium. Pupils are equally round and reactive. Extraoc ular movements are intact. Nose and throat are slightly dry. NECK: Supple, without masses, nodes or bruits. CHEST: Clear to auscultation. No rales, rhonchi or wheezes are heard. CARDIOVASCULAR: Reveals a regular rate and rhythm without murmurs, gallops or rubs. ABDOMEN: Obese. Soft, nontender, without organomegaly, normal bowel sounds are noted. No rebound o r guarding is noted. : Deferred. EXTREMITIES: Reveal no clubbing, cyanosis or edema. Left leg still is healing very well. It is not red, not warm. No sutures are noted. IMPRESSION: 1. Enterococcus urinary tract infection. 2. Prosthetic knee with spacer antibiotics and IV antibiotics for enterococcus. 3. Diabetes type 2, well controlled. 4. Obstructive sleep apnea. 5. Diastolic heart failure. 6. Del Valle's esophagitis. 7. History of atrial fibrillation. 8. Recurrent deep venous thrombus. 9. History of GI ulcer with a life-threatening gastroenteritis bleed. 10. Occasional confusion. 11. Generalized weakness. PLAN: 1. Continue antibiotics per Dr. Arboleda's recommendations. 2. Continue present medications. 3. Deep venous thrombosis prophylaxis. 4. Decubitus precautions. 5. Stress ulcer prophylaxis. 6. Physical therapy and occupational therapy. 7. Supportive care.
[2017-05-12] MEDS: Ascorbic Acid 500 mg Chewable Tablet PO SCH (09:12)
[2017-05-12] MEDS: Cyanocobalamin (Vitamin B-12) 1,000 MCG TAB PO SCH (09:12)
[2017-05-12] MEDS: Aspirin 81 mg Enteric Coated Tablet PO SCH (09:13)
[2017-05-12] MEDS: Alogliptin 6.25 MG TAB PO SCH (09:13)
[2017-05-12] MEDS: Multivitamin W/ Minerals 1 TAB PO SCH (09:13)
[2017-05-12] MEDS: Dutasteride 0.5 MG CAP PO SCH (09:13)
[2017-05-12] MEDS: Citalopram 10 MG TAB PO SCH (09:13)
[2017-05-12] MEDS: Clopidogrel Bisulfate 75 MG TAB PO SCH (09:13)
[2017-05-12] MEDS: Docusate 100 MG CAP PO SCH ×2 (09:14→21:09)
[2017-05-12] MEDS: Calcium Carbonate + Vit D 1 TAB PO SCH (09:14)
[2017-05-12] MEDS: Nystatin Powder 15 GM BOT TOP SCH ×2 (09:14→21:09)
[2017-05-12] MEDS: HumaLOG 300 UNITS/3 ML VIAL SC PRN (15:59)
--- NOTE | 2017-05-12 16:07 | PRG ---
DATE OF SERVICE: 05/12/2017 SUBJECTIVE: Mr. Schreiber is doing well. Denies any complaints. No further constipation issues. Tolera ting his medications and he states that he is going to be discharged next week. OBJECTIVE: VITAL SIGNS: He is afebrile, heart rate is 93, respirations 17, oxygen saturation 96%, and blood pre ssure 131/73. CARDIOVASCULAR SYSTEM: S1, S2 plus. RESPIRATORY SYSTEM: Normal vesicular breath sounds. ABDOMEN: Soft, nontender, bowel sounds heard in all quadrants. EXTREMITIES: Without cyanosis or clubbing. CENTRAL NERVOUS SYSTEM: Improving deconditioning. IMPRESSION: 1. Prosthetic joint infection, left knee. 2. Diabetes mellitus type 2. 3. Chronic diastolic congestive heart failure. 4. Obstructive sleep apnea. 5. Improving deconditioning. PLAN: 1. Continue current medications. 2. Nutritional support. 3. DVT and stress ulcer prophylaxis. 4. Decubitus precautions. 5. Bowel regimen. 6. Weekly CBC, CRP, sed rate. 7. Discussed with patient and spouse in detail and all questions answered.
[2017-05-12] MEDS: HYDROcodone/Acetaminophen 10/325 mg Tablet PO PRN (17:40)
[2017-05-12] MEDS: Tamsulosin HCl 0.4 MG CAP PO SCH (21:09)
[2017-05-13] MEDS: Levothyroxine Sodium 75 MCG TAB PO SCH (06:08)
[2017-05-13] MEDS: Ascorbic Acid 500 mg Chewable Tablet PO SCH (09:00)
[2017-05-13] MEDS: Cyanocobalamin (Vitamin B-12) 1,000 MCG TAB PO SCH (09:00)
[2017-05-13] MEDS: Citalopram 10 MG TAB PO SCH (09:01)
[2017-05-13] MEDS: Aspirin 81 mg Enteric Coated Tablet PO SCH (09:01)
[2017-05-13] MEDS: Calcium Carbonate + Vit D 1 TAB PO SCH (09:01)
[2017-05-13] MEDS: Alogliptin 6.25 MG TAB PO SCH (09:01)
[2017-05-13] MEDS: Dutasteride 0.5 MG CAP PO SCH (09:01)
[2017-05-13] MEDS: Docusate 100 MG CAP PO SCH ×2 (09:01→21:19)
[2017-05-13] MEDS: Multivitamin W/ Minerals 1 TAB PO SCH (09:01)
[2017-05-13] MEDS: Clopidogrel Bisulfate 75 MG TAB PO SCH (09:01)
[2017-05-13] MEDS: Nystatin Powder 15 GM BOT TOP SCH ×2 (09:02→21:20)
--- NOTE | 2017-05-13 11:09 | PRG ---
DATE OF SERVICE: 05/13/2017 SUBJECTIVE: Mr. Schreiber is doing well. Denies any complaints, resting comfortably. is not in the room. OBJECTIVE: VITAL SIGNS: He is afebrile, heart rate 61, respirations 18, oxygen saturation 94%, blood pressure 1 47/67. CARDIOVASCULAR SYSTEM: S1 and S2 plus. RESPIRATORY SYSTEM: Normal vesicular breath sounds. ABDOMEN: Soft, obese, nontender, bowel sounds heard in all quadrants. EXTREMITIES: Without cyanosis or clubbing. Left knee incision is healed and healthy. CENTRAL NERVOUS SYSTEM: Improving deconditioning. IMPRESSION: 1. Prosthetic joint infection in his left knee. 2. Diabetes mellitus type 2. 3. Chronic diastolic congestive heart failure. 4. Obstructive sleep apnea. 5. Improving deconditioning. 6. Resolved constipation. PLAN: 1. Continue current medications. 2. Nutritional support. 3. Heart healthy diet. 4. DVT and stress ulcer prophylaxis. 5. Decubitus precautions. 6. Routine laboratory values. 7. Dr. Arboleda back tonight.
[2017-05-13] MEDS: Milk Of Magnesia 30 ML UDCUP PO PRN (11:46)
[2017-05-13] MEDS: HumaLOG 300 UNITS/3 ML VIAL SC PRN ×2 (11:46→16:48)
[2017-05-13] MEDS: HYDROcodone/Acetaminophen 10/325 mg Tablet PO PRN (21:18)
[2017-05-13] MEDS: Tamsulosin HCl 0.4 MG CAP PO SCH (21:19)
[2017-05-14] MEDS: Levothyroxine Sodium 75 MCG TAB PO SCH (05:43)
[2017-05-14] MEDS: Ascorbic Acid 500 mg Chewable Tablet PO SCH (08:23)
[2017-05-14] MEDS: Alogliptin 6.25 MG TAB PO SCH (08:23)
[2017-05-14] MEDS: Aspirin 81 mg Enteric Coated Tablet PO SCH (08:24)
[2017-05-14] MEDS: Clopidogrel Bisulfate 75 MG TAB PO SCH (08:24)
[2017-05-14] MEDS: Cyanocobalamin (Vitamin B-12) 1,000 MCG TAB PO SCH (08:24)
[2017-05-14] MEDS: Citalopram 10 MG TAB PO SCH (08:24)
[2017-05-14] MEDS: Calcium Carbonate + Vit D 1 TAB PO SCH (08:24)
[2017-05-14] MEDS: Docusate 100 MG CAP PO SCH ×2 (08:25→20:57)
[2017-05-14] MEDS: Dutasteride 0.5 MG CAP PO SCH (08:25)
[2017-05-14] MEDS: Multivitamin W/ Minerals 1 TAB PO SCH (08:25)
[2017-05-14] MEDS: Nystatin Powder 15 GM BOT TOP SCH ×2 (08:39→20:56)
[2017-05-14] MEDS: HYDROcodone/Acetaminophen 10/325 mg Tablet PO PRN (20:56)
[2017-05-14] MEDS: Tamsulosin HCl 0.4 MG CAP PO SCH (20:57)
[2017-05-15] MEDS: Levothyroxine Sodium 75 MCG TAB PO SCH (05:46)
--- NOTE | 2017-05-15 07:25 | PRG ---
DATE OF SERVICE: 05/15/2017 SUBJECTIVE: The patient feels well. No complaints, decreasing pain in his left knee. No shortness of breath at rest and decreasing on exertion, sleeping well with no confusion. OBJECTIVE: VITAL SIGNS: Blood pressure is 133/79, temperature is 96.4, pulse 64, respirations 18, O2 sats 96% o n 2 liters. LUNGS: Lungs are clear, decreased breath sounds in the bases. CARDIAC: Cardiac examination shows irregular regular rhythm. ABDOMEN: Obese and nontender. SKIN AND EXTREMITIES: Skin and extremities display no edema, clubbing, cyanosis. There is a healing incision over the left knee with no tenderness, minimal erythema, no swelling. ASSESSMENT: 1. Resolving VRE infection, due to finish 6 weeks of antibiotics on 05/18/2017. 2. Stable morbid obesity. 3. Stable atrial fibrillation with rate control. 4. Stable chronic obstructive pulmonary disease with persistent hypoxia, but improving. 5. Stable sleep apnea with fair compliance with CPAP. PLAN: Repeat laboratories tomorrow. Finish antibiotics 05/18/2017, hopefully discharge home. Bryan w up with Dr. Mckeon next week. Discontinue oxygen and monitor O2 sats.
[2017-05-15 08:09] LABS: #Basophils 0.1 thou/uL (0.0-0.2); #Eosinphils 0.9 thou/uL (0.0-0.7); #Lymphocytes 3.1 thou/uL (1.20-3.40); #Neutrophils 5.5 thou/uL (1.40-6.50); %Basophils 1.3 % (0.0-1.0); %Eosinophils 8.5 % (0.0-10.0); %Lymphocytes 29.4 % (21.0-51.0); %Monocytes 9.2 % (0.0-10.0); %Neutrophils 51.6 % (42.0-75.0); Hemoglobin 12.5 g/dL (14.0-18.0); Mean Corpuscular HGB CONC 31.5 g/dL (32.0-36.0); Mean Corpuscular Hemoglobin 26.7 pg (27.0-31.0); Mean Corpuscular Volume 84.7 fl (80.0-94.0); Mean Platelet Volume 11.2 fL (7.4-10.4); Platelet Count 138 thou/uL (130-400); Red Blood Cell (RBC) Count 4.68 mill/uL (4.70-6.10); White Blood Cell (WBC) Count 10.7 thou/uL (4.8-10.8)
[2017-05-15 08:23] LABS: ALT (SGPT) 32 U/L (8-55); AST (SGOT) 30 U/L (5-34); Albumin 3.2 g/dL (3.4-4.8); Alkaline Phosphatase 110 U/L (40-150); Anion Gap 13 mmol/L (10-20); BUN (Urea Nitrogen) 18 mg/dL (8.4-25.7); Bilirubin, Total 0.5 mg/dL (0.2-1.2); Calc. Creatinine Clearance 101 mL/min (70-130); Calcium 9.4 mg/dL (7.8-10.44); Carbon Dioxide 22 mmol/L (23-31); Chloride 107 mmol/L (98-107); Estimated GFR-MDRD 71; Globulin 3.7 g/dL (2.4-3.5); Glucose 125 mg/dL (83-110); Potassium 4.1 mmol/L (3.5-5.1); Protein, Total 6.9 g/dL (5.8-8.1); Sodium 138 mmol/L (136-145)
[2017-05-15] MEDS: Alogliptin 6.25 MG TAB PO SCH (08:36)
[2017-05-15] MEDS: Calcium Carbonate + Vit D 1 TAB PO SCH (08:37)
[2017-05-15] MEDS: Ascorbic Acid 500 mg Chewable Tablet PO SCH (08:37)
[2017-05-15] MEDS: Citalopram 10 MG TAB PO SCH (08:37)
[2017-05-15] MEDS: Clopidogrel Bisulfate 75 MG TAB PO SCH (08:37)
[2017-05-15] MEDS: Cyanocobalamin (Vitamin B-12) 1,000 MCG TAB PO SCH (08:37)
[2017-05-15] MEDS: Aspirin 81 mg Enteric Coated Tablet PO SCH (08:37)
[2017-05-15] MEDS: Dutasteride 0.5 MG CAP PO SCH (08:38)
[2017-05-15] MEDS: Multivitamin W/ Minerals 1 TAB PO SCH (08:38)
[2017-05-15] MEDS: Docusate 100 MG CAP PO SCH ×2 (08:38→21:17)
[2017-05-15] MEDS: Nystatin Powder 15 GM BOT TOP SCH ×2 (08:39→21:17)
--- NOTE | 2017-05-15 13:24 | RAD ---
PORTABLE CHEST 1 VIEW: DATE: 05/15/17. TIME: 11:44 a.m. HISTORY: CHF, COPD. The patient had recent knee surgery. FINDINGS: Comparison is made with the exam of 04/12/17. The heart is enlarged. Left-sided pacing device remains in place. The right PICC line remains in un changed in position. There is mild prominence of the pulmonary vascularity. No lobar consolidation, pneumothoraces, or large effusions are seen. IMPRESSION: Stable exam. POS: MARQUES
[2017-05-15] MEDS: HYDROcodone/Acetaminophen 10/325 mg Tablet PO PRN (21:16)
[2017-05-15] MEDS: Tamsulosin HCl 0.4 MG CAP PO SCH (21:17)
[2017-05-16] MEDS: Levothyroxine Sodium 75 MCG TAB PO SCH (05:32)
[2017-05-16] MEDS: Alogliptin 6.25 MG TAB PO SCH (09:04)
[2017-05-16] MEDS: Calcium Carbonate + Vit D 1 TAB PO SCH (09:04)
[2017-05-16] MEDS: Ascorbic Acid 500 mg Chewable Tablet PO SCH (09:04)
[2017-05-16] MEDS: Cyanocobalamin (Vitamin B-12) 1,000 MCG TAB PO SCH (09:04)
[2017-05-16] MEDS: Dutasteride 0.5 MG CAP PO SCH (09:05)
[2017-05-16] MEDS: Aspirin 81 mg Enteric Coated Tablet PO SCH (09:05)
[2017-05-16] MEDS: Clopidogrel Bisulfate 75 MG TAB PO SCH (09:05)
[2017-05-16] MEDS: Docusate 100 MG CAP PO SCH ×2 (09:05→20:16)
[2017-05-16] MEDS: Multivitamin W/ Minerals 1 TAB PO SCH (09:05)
[2017-05-16] MEDS: Citalopram 10 MG TAB PO SCH (09:05)
[2017-05-16] MEDS: Nystatin Powder 15 GM BOT TOP SCH ×2 (09:06→20:17)
--- NOTE | 2017-05-16 09:56 | PRG ---
DATE OF SERVICE: 05/15/2017 SUBJECTIVE: The patient feels well, no pain in knee, and walking with therapy. No shortness of saman th at rest, good appetite, sleeping well. OBJECTIVE: GENERAL: Therapist states that patient is walking 43 feet for different times during the day, transf erring with supervision only, sitting up in a wheelchair. VITAL SIGNS: Show blood pressure 146/74, temperature 95.3, pulse 62, respirations 20, O2 sat is 92% on 2 L. LUNGS: Show decreased breath sounds in the bases. CARDIAC EXAMINATION: Shows an irregularly irregular rhythm. ABDOMEN: Obese and nontender. EXTREMITIES: Left knee shows minimal tenderness and swelling and erythema. Good range of motion. LABORATORY DATA: White count is down 10,700, hematocrit 39, hemoglobin 12. Sed rate 31. Accu-Cheks ranged 116-193. Sodium 138, potassium 4.1, chloride 107, bicarbonate 22, BUN was 18, creatinine 1.0 1, glucose 125. C-reactive protein of 1.55. Liver functions normal. ASSESSMENT: 1. 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 Stable atrial fibrillation, rate controlled. 3. Stable sleep apnea and chronic obstructive pulmonary disease. 4. Improving deconditioning. PLAN: Continue PT and OT. Continue IV daptomycin until 05/18/2017. Monitor O2 sats off oxygen.
[2017-05-16] MEDS: HumaLOG 300 UNITS/3 ML VIAL SC PRN (12:11)
[2017-05-16] MEDS: Milk Of Magnesia 30 ML UDCUP PO PRN (18:05)
[2017-05-16] MEDS: Tamsulosin HCl 0.4 MG CAP PO SCH (20:17)
[2017-05-17] MEDS: Levothyroxine Sodium 75 MCG TAB PO SCH (05:43)
--- NOTE | 2017-05-17 07:34 | PRG ---
DATE OF SERVICE: 05/16/2017 SUBJECTIVE: The patient feels well, resting in bed, no complaints. Cooperating well with therapy. Plan for discharge in the next several days. OBJECTIVE: VITAL SIGNS: Blood pressure is 124/65, temperature is 95.9, pulse 61 and regular, respirations 16, O 2 sats 95% on room air. LUNGS: Lungs show decreased breath sounds in bases. CARDIAC: Cardiac examination shows an irregular regular rhythm. EXTREMITIES: Left knee shows minimal erythema, tenderness, increasing range of motion, minimal swell ing. PT states the patient is transferring with supervision only, sitting up in the chair, walking short d istances of 16 and 30 feet several times daily with normal saturation, mild shortness of breath. ASSESSMENT: 1. 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 2. Improving deconditioning. 3. Stable atrial fibrillation, rate controlled on anticoagulation. 4. Stable chronic obstructive pulmonary disease and sleep apnea with fair compliance with CPAP, with no requirements of oxygen at this time. PLAN: Finish antibiotics tomorrow and discharge home tomorrow. Follow up Dr. Mckeon and discuss [facility] with family and patient.
[2017-05-17] MEDS: Ascorbic Acid 500 mg Chewable Tablet PO SCH (08:16)
[2017-05-17] MEDS: Citalopram 10 MG TAB PO SCH (08:17)
[2017-05-17] MEDS: Docusate 100 MG CAP PO SCH ×2 (08:17→20:29)
[2017-05-17] MEDS: Aspirin 81 mg Enteric Coated Tablet PO SCH (08:17)
[2017-05-17] MEDS: Cyanocobalamin (Vitamin B-12) 1,000 MCG TAB PO SCH (08:17)
[2017-05-17] MEDS: Multivitamin W/ Minerals 1 TAB PO SCH (08:17)
[2017-05-17] MEDS: Alogliptin 6.25 MG TAB PO SCH (08:18)
[2017-05-17] MEDS: Clopidogrel Bisulfate 75 MG TAB PO SCH (08:18)
[2017-05-17] MEDS: Dutasteride 0.5 MG CAP PO SCH (08:18)
[2017-05-17] MEDS: Calcium Carbonate + Vit D 1 TAB PO SCH (08:18)
[2017-05-17] MEDS: Nystatin Powder 15 GM BOT TOP SCH ×2 (09:00→20:29)
[2017-05-17] MEDS: HumaLOG 300 UNITS/3 ML VIAL SC PRN (11:46)
--- NOTE | 2017-05-17 16:52 | PRG ---
DATE OF SERVICE: 05/17/2017 SUBJECTIVE: The patient feels well with no pain in knee, cooperating with therapy, tolerating CPAP w ith no oxygen at night, alert, oriented and lucid. OBJECTIVE: Shows vital signs with temperature of 96.2, pulse 63, respirations 16, O2 sats 96% on melinda m air, blood pressure 135/79. Most recent sed rate is 31. Accu-Cheks range 118 to 181. Lungs showe d decreased breath sounds at bases. Cardiac examination shows an irregularly regular rhythm. Left k nee shows healing incision with no erythema, warmth or tenderness. ASSESSMENT: 1. 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 We will discuss with Dr. Perales about continued antibiotics. 2. Stable atrial fibrillation with rate control with no anticoagulation. 3. Sleep apnea, stable on CPAP. 4. Morbid obesity, stable. 5. Deconditioning, improving daily. PLAN: Continue physical therapy, finish daptomycin tomorrow. Discuss outpatient oral antibiotics wi Dr. Perales. Plan to discharge tomorrow to follow up with Dr. Mckeon in 2 weeks.
[2017-05-17] MEDS: Tamsulosin HCl 0.4 MG CAP PO SCH (20:29)
[2017-05-18] MEDS: Levothyroxine Sodium 75 MCG TAB PO SCH (05:11)
[2017-05-18 07:25] VITALS: BP 131/72; TEMP 96
[2017-05-18] MEDS: Ascorbic Acid 500 mg Chewable Tablet PO SCH (09:20)
[2017-05-18] MEDS: Citalopram 10 MG TAB PO SCH (09:21)
[2017-05-18] MEDS: Multivitamin W/ Minerals 1 TAB PO SCH (09:21)
[2017-05-18] MEDS: Calcium Carbonate + Vit D 1 TAB PO SCH (09:21)
[2017-05-18] MEDS: Docusate 100 MG CAP PO SCH (09:21)
[2017-05-18] MEDS: Cyanocobalamin (Vitamin B-12) 1,000 MCG TAB PO SCH (09:22)
[2017-05-18] MEDS: Clopidogrel Bisulfate 75 MG TAB PO SCH (09:22)
[2017-05-18] MEDS: Aspirin 81 mg Enteric Coated Tablet PO SCH (09:22)
[2017-05-18] MEDS: Alogliptin 6.25 MG TAB PO SCH (09:22)
[2017-05-18] MEDS: Dutasteride 0.5 MG CAP PO SCH (09:22)
--- NOTE | 2017-05-18 14:00 | DIS ---
FINAL DIAGNOSES: 1. Resolved infection of prosthetic right knee with vancomycin resistant Enterococcus after finishin g 6 weeks of antibiotics and now on prophylactic penicillin. 2. Recurrent deep venous thrombosis in the past. 3. History of gastroesophageal reflux and Del Valle's esophagus. 4. History of atrial fibrillation paroxysmally with rate control. 5. Diabetes type 2. 6. Obstructive sleep apnea, on CPAP. 7. Morbid obesity. 8. Deconditioning. 9. Benign prostatic hypertrophy, lower tract obstructive symptoms. 10. New onset of depression. 11. Chronic hypothyroidism. HOSPITAL COURSE: The patient is a very pleasant 82-year-old white male with multiple medical problem s who was [facility] to the [facility] after a long stay at [facility] for recurrent infection of his prosthet ic right knee essentially requiring replacement of the knee with a functional placer placed and treat ment with IV daptomycin 1 gram daily for 6 weeks because of recurrent infection and vancomycin resist ant Enterococcus. He did well during his stay here with initially some erythema and tenderness in hi s knee and swelling and no weightbearing, but after 2 weeks, his symptoms improved greatly swelling r esolved as did his erythema. He was seen by his orthopedic surgeon, Dr. Dontae Mckeon, and released t o start on partial weightbearing with therapy and continued on that for the following 5 weeks and did very well, was walking in the gary with therapy up to 160 feet with no pain, swelling or tenderness . He finished a full 6-week course of daptomycin. Consultation was obtained with Dr. Leonid Perales who felt like he should be discharged home on penicillin 500 mg twice daily indefinitely and this was done. He had no problems with his previous history of recurrent GI bleed and was on Protonix and wi ll be discharged home on his previous medication of Dexilant. He was not anticoagulated for his paro xysmal atrial fibrillation and for his previous history of recurrent deep venous thrombosis because o f the history of severe GI bleed requiring partial gastrectomy and only continued on his aspirin and Plavix. He did have some problems with some recurrent benign prostatic hypertrophy and lower tract o bstruction despite treatment with tamsulosin and finasteride, but this was switched tamsulosin and du tasteride and he improved on this and was able to have the Delgado catheter removed with no difficulty during the last several weeks of his hospitalization. He also have some problems with depression and anxiety because of his long illness was started on Citalopram and did well over the last 2 weeks and will be discharged home on this. He required minimal pain medications and pain therapy will be disc ussed with he and his prior to discharge. He also had some problems with hypoxemia requiring na jamaal cannula initially, but this resolved and he was maintained only on his nocturnal CPAP and was maynor y compliant to this and resting well. On discharge, his vital signs showed him to have a blood pressure 131/72, temperature is 96, pulse 61 , respirations 20, O2 saturation was 95% on room air. His lungs showed decreased breath sounds in th e bases. Cardiac examination showed irregular rhythm. Abdomen was obese, nontender. Left knee show ed some swelling, but no erythema, warmth, and minimal tenderness. There was no swelling of the calf . His discharge laboratory showed him to have white count 10,700. Sed rate of 31 and hematocrit 39, he moglobin 12, sodium was 138, potassium 4.1, chloride 107, bicarbonate 22, BUN 18, creatinine 1.01, gl ucose 125. CRP was 1.55. He was discharged home on the above-mentioned citalopram 10 mg daily, Plavix 75 daily, Dexilant 60 da haritha, Avodart 0.5 daily, tamsulosin 0.4 daily, Januvia 50 mg daily that he had taken long-term for his diabetes type 2, Crestor 20 mg daily, Nystatin powder as needed, levothyroxine 75 mcg daily and mariposa lly rosuvastatin 20 mg nightly. He will follow up with myself in [address] Dontae Mckeon in 2 weeks. We will continue home heal with [facility] with outpatient physical therapy. He will also call to make an appointment to follow up with his customs and border protection inspector, Dr. Barrios, in the distant future as well as his urologist, Dr. John Mckeon. He is walking with a walker at this time, no orthopedic limitations and is on a diabe tic diet and will monitor his Accu-Cheks at home. He will do his maintenance care examination with myself in 2 weeks.
[2017-05-18] MEDS ORDERED: Penicillin V Potassium 250 MG TAB PO SCH (21:00)
== END 2017-05-18 13:35 | disposition home health service (06) | DRG 949 ==
LOC: NAV ACUTE 15:18
PROVIDERS: ADMIT Internal Medicine; ATTEND Internal Medicine
DX: T84.54XD Infection and inflammatory reaction due to internal left knee prosthesis, subsequent encounter (principal); I50.32 Chronic diastolic (congestive) heart failure; I48.91 Unspecified atrial fibrillation; E66.01 Morbid (severe) obesity due to excess calories; E11.9 Type 2 diabetes mellitus without complications; B95.2 Enterococcus as the cause of diseases classified elsewhere; G47.33 Obstructive sleep apnea (adult) (pediatric); Y83.8 Other surgical procedures as the cause of abnormal reaction of the patient, or of later complication, without mention of misadventure at the time of the procedure; Z86.711 Personal history of pulmonary embolism; Z86.718 Personal history of other venous thrombosis and embolism; Z16.21 Resistance to vancomycin; J44.9 Chronic obstructive pulmonary disease, unspecified; K59.00 Constipation, unspecified; K22.70 Barrett's esophagus without dysplasia; F41.9 Anxiety disorder, unspecified; F32.9 Major depressive disorder, single episode, unspecified; R41.0 Disorientation, unspecified; N40.1 Benign prostatic hyperplasia with lower urinary tract symptoms; R33.8 Other retention of urine; E03.9 Hypothyroidism, unspecified; Z68.34 Body mass index [BMI] 34.0-34.9, adult
CPT/HCPCS: 36415; 36416; 71010; 71045; 80048; 80053; 81001; 82550; 83880; 85025; 85652; 86140; 87086; 94640; A4216; C1751; G8996-GN-CI; G8997-GN-CI; J0878; J1940; J2185; J7050; J7620

== ENCOUNTER 2017-07-19 10:02 | Outpatient (CLI) | payer MEDICARE ==
--- NOTE | 2017-07-19 13:25 | ULT ---
DOPPLER VENOUS ULTRASOUND OF THE LEFT LOWER EXTREMITY: INDICATIONS: Left lower extremity edema for three weeks, following knee surgery in March 2017. TECHNIQUE: Alexis scale, color Doppler, and vascular duplex with spectral analysis was performed of the deep venou s structures of the left lower extremity. The common femoral vein, superficial femoral vein, poplitea l vein, posterior tibial vein, proximal greater saphenous, and proximal profunda veins were assessed bilaterally. FINDINGS: There is normal compression, flow, and augmentation seen within the deep venous structures of the lef t lower extremity. IMPRESSION: No evidence of deep venous thrombosis in the left lower extremity. POS: MARQUES
== END 2017-07-19 10:03 | disposition home or self-care (01) ==
LOC: NAV ULT 10:02
PROVIDERS: ATTEND Internal Medicine
DX: I82.90 Acute embolism and thrombosis of unspecified vein (principal)